=== PATIENT | male | born 1940 | race Caucasian/White ===

== ENCOUNTER 2016-11-04 04:05 | Inpatient (IN) | payer MEDICARE, BC ==
--- NOTE | 2016-11-04 04:49 | EDM.PDOC ---
ED HPI GENERAL MEDICAL PROBLEM - General Chief Complaint: Fever Stated Complaint: COPD/FEVER/COUGH Time Seen by Provider: 11/04/16 04:43 Source of Information: Reports: Patient, Family History Limitations: Reports: No Limitations - History of Present Illness INITIAL COMMENTS - FREE TEXT/NARRATIVE: pt arrived with increased sob nd h has been spiking temps as high as 104. He has had increased sob. He has not been raising sig sputum. He has not noted increased swelling in his ankles. He does use o2 at home at 2 liters. He is followed by a pulmomologist in [place]. Onset: Gradual Duration: Day(s):, Getting Worse Location: Reports: Chest Associated Symptoms: Reports: Cough, Fever/Chills, Malaise, Shortness of Breath , Weakness shoulders and legs Pain Score (Numeric/FACES): 7 - Related Data Allergies Allergy/AdvReac Type Severity Reaction Status Date / Time zolpidem tartrate Allergy Other Verified 11/04/16 04:20 [From Ambien] codeine phosphate AdvReac Nausea and Verified 11/04/16 04:20 [From Tylenol-Codeine] Vomiting Penicillins AdvReac Swelling Verified 11/04/16 04:20 Home Meds: Home Meds Albuterol Sulfate [Proair Hfa] 90 mcg IH Q6HR PRN 09/29/13 [History] Fish Oil/Borage/Flax/Om3,6,9#1 [[place] 3-6-9 Complex Softgel] 1 each PO DAILY [History] Ranitidine HCl [Zantac] 150 mg PO DAILY 09/29/13 [History] Aspirin 1 tab PO DAILY 09/19/15 [History] Cholecalciferol (Vitamin D3) [Vitamin D3] 1 tab PO DAILY 09/19/15 [History] Clopidogrel [Plavix] 1 tab PO DAILY 09/19/15 [History] Lisinopril [Zestril] 1 tab PO DAILY 09/19/15 [History] Tiotropium [Spiriva HandiHaler] 1 cap INH DAILY 09/19/15 [History] amLODIPine [Norvasc] 1 tab PO DAILY 09/19/15 [History] busPIRone [Buspar] 0.5 tab PO BID 09/19/15 [History] atorvaSTATin [Lipitor] 80 mg PO DAILY 01/09/16 [History] Albuterol Sulfate [Proair Respiclick] 90 mcg IH Q6HR PRN 11/04/16 [History] Azithromycin [Zithromax] 500 mg PO ASDIRECTED 11/04/16 [History] Cyanocobalamin (Vitamin B-12) [Vitamin B-12] 1,000 mcg SL DAILY 11/04/16 [ History] Fluticasone/Salmeterol [Advair Diskus 500-50] 1 puff INH BID 11/04/16 [History] Ranibizumab [Lucentis] 0.5 mg Q3M 11/04/16 [History] Past Medical History HEENT History: Reports: Cataract, Hard of Hearing, Impaired Vision, Macular Degeneration Cardiovascular History: Reports: CAD, High Cholesterol, Hypertension, SOB on Exertion, Stents Respiratory History: Reports: COPD, Pneumonia, Recurrent, SOB Other Respiratory History: Home oxygen Gastrointestinal History: Reports: Colon Polyp Genitourinary History: Reports: BPH Musculoskeletal History: Reports: Fracture Psychiatric History: Reports: Anxiety Oncologic (Cancer) History: Reports: Basal Cell Carcinoma Other Oncologic History: skin Dermatologic History: Reports: Psoriasis - Infectious Disease History Infectious Disease History: Reports: Mumps, Rheumatic Fever - Past Surgical History Cardiovascular Surgical History: Reports: Coronary Artery Stent Musculoskeletal Surgical History: Reports: Other (See Below) Other Musculoskeletal Surgeries/Procedures:: ankle surgery Social & Family History - Tobacco Use Smoking Status *Q: Former Smoker Years of Tobacco use: 35 Used Tobacco, but Quit: Yes Month Tobacco Last Used: 30 years ago Second Hand Smoke Exposure: No - Caffeine Use Caffeine Use: Reports: None - Alcohol Use Days Per Week of Alcohol Use: 0 - Recreational Drug Use Recreational Drug Use: No ED ROS GENERAL - Review of Systems Review Of Systems: See Below Constitutional: Reports: Fever, Chills, Malaise HEENT: Reports: No Symptoms Respiratory: Reports: Shortness of Breath, Cough, Other (pt has been very sob for the past 2 days. ) Cardiovascular: Reports: No Symptoms Endocrine: Reports: No Symptoms GI/Abdominal: Reports: No Symptoms : Reports: No Symptoms Musculoskeletal: Reports: No Symptoms Skin: Reports: No Symptoms ED EXAM, GENERAL - Physical Exam Exam: See Below Free Text/Narrative:: Pt arrived with increased sob. He spiked a temp up to 104. He has had increased coughing. Exam Limited By: No Limitations General Appearance: Alert, Anxious, Moderate Distress Ears: Normal TMs Nose: Normal Inspection Throat/Mouth: Normal Inspection Head: Atraumatic Neck: Normal Inspection Respiratory/Chest: Decreased Breath Sounds, Wheezing Cardiovascular: Regular Rate, Rhythm GI/Abdominal: Soft, Non-Tender (Male) Exam: Deferred Rectal (Males) Exam: Deferred Back Exam: Normal Inspection Extremities: Normal Inspection Neurological: Alert, Oriented, Normal Cognition Psychiatric: Normal Affect Course - Vital Signs Last Recorded V/S: Last Vital Signs Temp 37.5 C 11/04/16 04:10 Pulse 75 11/04/16 05:59 Resp 24 H 11/04/16 05:59 BP 137/76 11/04/16 05:59 Pulse Ox 93 L 11/04/16 05:59 - Orders/Labs/Meds Orders: Active Orders 24 hr Category Date Time Status EKG Documentation Completion [RC] ASDIRECTED Care 11/04/16 04:54 Active RT Aerosol Therapy [RC] ASDIRECTED Care 11/04/16 04:52 Active Chest 1V Frontal [CR] Stat Exams 11/04/16 04:08 Taken CULTURE BLOOD [BC] Urgent Lab 11/04/16 05:05 Received CULTURE BLOOD [BC] Urgent Lab 11/04/16 05:10 Received UA W/MICROSCOPIC [URIN] Urgent Lab 11/04/16 04:07 Uncollected Levofloxacin/Dextrose 5%-Water [Levaquin in D5W 500 MG/ Med 11/04/16 05:53 Active 100 ML] 500 mg Premix Bag 1 bag IV ONETIME Sodium Chloride 0.9% [Normal Saline] 1,000 ml Med 11/04/16 05:45 Active IV ASDIRECTED Blood Culture x2 Reflex Set [OM.PC] Urgent Oth 11/04/16 04:53 Ordered EKG 12 Lead [EK] Routine Ther 11/04/16 04:54 Ordered Medication Orders Sodium Chloride (Normal Saline) 1,000 mls @ 250 mls/hr IV ASDIRECTED ALON Last Admin: 11/04/16 05:50 Dose: 250 mls/hr Levofloxacin/Dextrose 500 mg/ (Premix) 100 mls @ 100 mls/hr IV ONETIME ONE Stop: 11/04/16 06:52 Labs: Laboratory Tests 11/04/16 11/04/16 11/04/16 Range/Units 04:07 04:08 04:15 WBC 16.8 H (4.5-11.0) K/uL RBC 5.39 (4.30-5.90) M/uL Hgb 15.2 H (12.0-15.0) g/dL Hct 45.6 (40.0-54.0) % MCV 85 (80-98) fL MCH 28 (27-31) pg MCHC 33 (32-36) % Plt Count 198 (150-400) K/uL Neut % (Auto) 87 H (36-66) % Lymph % (Auto) 4 L (24-44) % [place] % (Auto) 9 H (2-6) % Eos % (Auto) 0 L (2-4) % Baso % (Auto) 0 (0-1) % Puncture Site Lt radial ABG pH 7.439 (7.350-7.450) ABG pCO2 41.4 (35.0-42.0) mmHg ABG pO2 47.4 L (75.0-100.0) mmHg ABG HCO3 27.6 H (22.0-26.0) mmol/L ABG Total CO2 23.6 (23.0-27.0) mmol/L ABG O2 Saturation 85.9 L (95.0-98.0) % ABG O2 Content 18.3 (15.0-23.0) %vol ABG Base Excess 3.5 mm/L ABG Hemoglobin 15.6 (13.5-18.0) g/dL ABG Oxyhemoglobin 83.9 % ABG Carboxyhemoglobin 1.8 H (0.0-1.6) % ABG Methemoglobin 0.5 % Chad Test Passed O2 Delivery Device Nasal cannula Oxygen Flow Rate 3 L Sodium 138 L (140-148) mmol/L Potassium 4.6 (3.6-5.2) mmol/L Chloride 102 (100-108) mmol/L Carbon Dioxide 29 (21-32) mmol/L Anion Gap 11.6 (5.0-14.0) mmol/L BUN 11 (7-18) mg/dL Creatinine 0.9 (0.8-1.3) mg/dL Est Cr Clr Drug Dosing 64.98 mL/min Estimated GFR (MDRD) > 60 (>60) Glucose 131 H (74-106) mg/dL Lactic Acid (0.4-2.0) mmol/L Calcium 8.6 (8.5-10.1) mg/dL Total Bilirubin 1.7 H D (0.2-1.0) mg/dL AST 20 (15-37) U/L ALT 27 (12-78) U/L Alkaline Phosphatase 101 (46-116) U/L Lvr-K-Qvpiisciuiw Pept (5-125) pg/mL Total Protein 7.8 (6.4-8.2) g/dL Albumin 3.8 (3.4-5.0) g/dL Globulin 4.0 H (2.3-3.5) g/dL Albumin/Globulin Ratio 1.0 L (1.2-2.2) 11/04/16 11/04/16 Range/Units 04:54 05:53 WBC (4.5-11.0) K/uL RBC (4.30-5.90) M/uL Hgb (12.0-15.0) g/dL Hct (40.0-54.0) % MCV (80-98) fL MCH (27-31) pg MCHC (32-36) % Plt Count (150-400) K/uL Neut % (Auto) (36-66) % Lymph % (Auto) (24-44) % [place] % (Auto) (2-6) % Eos % (Auto) (2-4) % Baso % (Auto) (0-1) % Puncture Site ABG pH (7.350-7.450) ABG pCO2 (35.0-42.0) mmHg ABG pO2 (75.0-100.0) mmHg ABG HCO3 (22.0-26.0) mmol/L ABG Total CO2 (23.0-27.0) mmol/L ABG O2 Saturation (95.0-98.0) % ABG O2 Content (15.0-23.0) %vol ABG Base Excess mm/L ABG Hemoglobin (13.5-18.0) g/dL ABG Oxyhemoglobin % ABG Carboxyhemoglobin (0.0-1.6) % ABG Methemoglobin % Chad Test O2 Delivery Device Oxygen Flow Rate L Sodium (140-148) mmol/L Potassium (3.6-5.2) mmol/L Chloride (100-108) mmol/L Carbon Dioxide (21-32) mmol/L Anion Gap (5.0-14.0) mmol/L BUN (7-18) mg/dL Creatinine (0.8-1.3) mg/dL Est Cr Clr Drug Dosing mL/min Estimated GFR (MDRD) (>60) Glucose (74-106) mg/dL Lactic Acid 1.2 (0.4-2.0) mmol/L Calcium (8.5-10.1) mg/dL Total Bilirubin (0.2-1.0) mg/dL AST (15-37) U/L ALT (12-78) U/L Alkaline Phosphatase (46-116) U/L Sib-G-Dareruxjfjh Pept 194 H (5-125) pg/mL Total Protein (6.4-8.2) g/dL Albumin (3.4-5.0) g/dL Globulin (2.3-3.5) g/dL Albumin/Globulin Ratio (1.2-2.2) Meds: Medications Generic Name Dose Route Start Last Admin Trade Name Freq PRN Reason Stop Dose Admin Sodium Chloride 1,000 mls @ 250 mls/hr 11/04/16 05:45 11/04/16 05:50 Normal Saline IV 250 mls/hr ASDIRECTED ALON Administration Levofloxacin/Dextrose 500 mg/ 100 mls @ 100 mls/hr 11/04/16 05:53 Premix IV 11/04/16 06:52 ONETIME ONE Discontinued Medications Generic Name Dose Route Start Last Admin Trade Name Freq PRN Reason Stop Dose Admin Albuterol 2.5 mg 11/04/16 04:52 11/04/16 04:59 Proventil Neb Soln NEB 11/04/16 04:53 2.5 mg ONETIME ONE Administration Methylprednisolone Sodium Succinate 125 mg 11/04/16 05:32 11/04/16 05:53 Solu-Medrol IVPUSH 11/04/16 05:33 125 mg ONETIME ONE Administration - Re-Assessments/Exams Free Text/Narrative Re-Assessment/Exam: 11/04/16 06:07 chest xray reveals a infiltrate at the rt lung base, wbc is 16,800. He was given a neb and solumedrol 125 and he is breathing better. His ekg looks good. Departure - Departure Time of Disposition: 06:08 Disposition: Admitted As Inpatient 68 Condition: Fair Clinical Impression: COPD exacerbation, Right lower lobe pneumonia - Discharge Information Forms: ED Department Discharge Care Plan Goals: admit to Dr de la paz. - My Orders Last 24 Hours: My Active Orders 11/04/16 04:07 UA W/MICROSCOPIC [URIN] Urgent 11/04/16 04:08 Chest 1V Frontal [CR] Stat 11/04/16 04:52 RT Aerosol Therapy [RC] ASDIRECTED 11/04/16 04:53 Blood Culture x2 Reflex Set [OM.PC] Urgent 11/04/16 04:54 EKG Documentation Completion [RC] ASDIRECTED EKG 12 Lead [EK] Routine 11/04/16 05:05 CULTURE BLOOD [BC] Urgent 11/04/16 05:10 CULTURE BLOOD [BC] Urgent 11/04/16 05:45 Sodium Chloride 0.9% [Normal Saline] 1,000 ml IV ASDIRECTED 11/04/16 05:53 Levofloxacin/Dextrose 5%-Water [Levaquin in D5W 500 MG/100 ML] 500 mg Premix Bag 1 bag IV ONETIME - Assessment/Plan Last 24 Hours: My Active Orders 11/04/16 04:07 UA W/MICROSCOPIC [URIN] Urgent 11/04/16 04:08 Chest 1V Frontal [CR] Stat 11/04/16 04:52 RT Aerosol Therapy [RC] ASDIRECTED 11/04/16 04:53 Blood Culture x2 Reflex Set [OM.PC] Urgent 11/04/16 04:54 EKG Documentation Completion [RC] ASDIRECTED EKG 12 Lead [EK] Routine 11/04/16 05:05 CULTURE BLOOD [BC] Urgent 11/04/16 05:10 CULTURE BLOOD [BC] Urgent 11/04/16 05:45 Sodium Chloride 0.9% [Normal Saline] 1,000 ml IV ASDIRECTED 11/04/16 05:53 Levofloxacin/Dextrose 5%-Water [Levaquin in D5W 500 MG/100 ML] 500 mg Premix Bag 1 bag IV ONETIME
[2016-11-04] MEDS ORDERED: Albuterol 0.083% 2.5 MG/3 ML Neb Soln NEB ONE (04:52)
[2016-11-04] MEDS ORDERED: methylPREDNISolone Sodium Succinate 125 MG/2 ML SDV IVPUSH ONE (05:32)
[2016-11-04] MEDS ORDERED: Sodium Chloride 0.9% 1,000 ML IV SCH (05:45)
[2016-11-04] MEDS ORDERED: Levofloxacin/Dextrose 5%-Water 500 MG in Premix Bag 1 BAG IV ONE (05:53)
--- NOTE | 2016-11-04 08:11 | PCM.HP ---
H&P History of Present Illness - General Date of Service: 11/04/16 Admit Problem/Dx: Admission Diagnosis/Problem Admission Diagnosis/Problem Pneumonia Source of Information: Patient, Family, Provider History Limitations: Reports: No Limitations - History of Present Illness Initial Comments - Free Text/Narative: Christiano presents to the emergency room with 2 days of progressive shortness of breath and fever. He reports initially mild shortness of breath with progression. He is very short of breath with any activity. He has had a dry cough for the past 2 days as well. Yesterday afternoon he developed subjective fevers and then had worsening of symptoms throughout the evening. His measured temperatures greater than 104 last night. The fever did improve with a dose of acetaminophen. He reports some very mild discomfort with deep breathing. This is located in the anterior chest. No exertional symptoms. He has had some mild nausea off and on but this is a chronic issue. He reports chronic constipation that has been relatively stable. No recent diarrhea. No lower extremity edema or orthopnea. 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 his oxygen numbers have been running lower than normal at home despite supplemental oxygen. Workup in the emergency room revealed significant leukocytosis, hypoxia and probable right lower lung pneumonia. He will be admitted for management. shoulders and legs Pain Score (Numeric/FACES): 7 - Related Data Allergies/Adverse Reactions: Allergies Allergy/AdvReac Type Severity Reaction Status Date / Time zolpidem tartrate Allergy Other Verified 11/04/16 04:20 [From Ambien] codeine phosphate AdvReac Nausea and Verified 11/04/16 04:20 [From Tylenol-Codeine] Vomiting Penicillins AdvReac Swelling Verified 11/04/16 04:20 Home Medications: Home Meds Albuterol Sulfate [Proair Hfa] 90 mcg IH Q6HR PRN 09/29/13 [History] Fish Oil/Borage/Flax/Om3,6,9#1 [[place] 3-6-9 Complex Softgel] 1 each PO DAILY [History] Aspirin 81 mg PO DAILY 09/19/15 [History] Cholecalciferol (Vitamin D3) [Vitamin D3] 2,000 unit PO DAILY 09/19/15 [History] Clopidogrel [Plavix] 75 mg PO DAILY 09/19/15 [History] Lisinopril [Zestril] 20 mg PO DAILY 09/19/15 [History] Tiotropium [Spiriva HandiHaler] 1 cap INH DAILY 09/19/15 [History] amLODIPine [Norvasc] 5 mg PO DAILY 09/19/15 [History] busPIRone [Buspar] 5 mg PO BID 09/19/15 [History] atorvaSTATin [Lipitor] 80 mg PO DAILY 01/09/16 [History] Albuterol Sulfate [Proair Respiclick] 90 mcg IH Q6HR PRN 11/04/16 [History] Azithromycin [Zithromax] 500 mg PO ASDIRECTED 11/04/16 [History] Cyanocobalamin (Vitamin B-12) [Vitamin B-12] 1,000 mcg SL DAILY 11/04/16 [ History] Fluticasone/Salmeterol [Advair Diskus 500-50] 1 puff INH BID 11/04/16 [History] Ranibizumab [Lucentis] 0.5 mg Q3M 11/04/16 [History] Ranitidine [Zantac] 150 mg PO DAILY 11/04/16 [History] Past Medical History HEENT History: Reports: Cataract, Hard of Hearing, Impaired Vision, Macular Degeneration Cardiovascular History: Reports: CAD, High Cholesterol, Hypertension, SOB on Exertion, Stents Respiratory History: Reports: COPD, Pneumonia, Recurrent, SOB Other Respiratory History: Home oxygen Gastrointestinal History: Reports: Colon Polyp Genitourinary History: Reports: BPH Musculoskeletal History: Reports: Fracture Psychiatric History: Reports: Anxiety Oncologic (Cancer) History: Reports: Basal Cell Carcinoma Other Oncologic History: skin Dermatologic History: Reports: Psoriasis - Infectious Disease History Infectious Disease History: Reports: Mumps, Rheumatic Fever - Past Surgical History Cardiovascular Surgical History: Reports: Coronary Artery Stent Musculoskeletal Surgical History: Reports: Other (See Below) Other Musculoskeletal Surgeries/Procedures:: ankle surgery Social & Family History - Family History Respiratory: Reports: COPD - Tobacco Use Smoking Status *Q: Former Smoker Years of Tobacco use: 35 Used Tobacco, but Quit: Yes Month Tobacco Last Used: 30 years ago Second Hand Smoke Exposure: No - Caffeine Use Caffeine Use: Reports: None - Alcohol Use Days Per Week of Alcohol Use: 0 - Recreational Drug Use Recreational Drug Use: No H&P Review of Systems - Review of Systems: Review Of Systems: See Below Free Text/Narrative: A complete 12 point review of systems was obtained. Pertinent positives and negatives are noted in the history of present illness. All other systems were reviewed and were negative except as noted. Exam - Exam Exam: See Below - Vital Signs Vital Signs: Last Vital Signs Temp 37.5 C 11/04/16 04:10 Pulse 75 11/04/16 05:59 Resp 24 H 11/04/16 05:59 BP 137/76 11/04/16 05:59 Pulse Ox 93 L 11/04/16 05:59 Weight: 77.111 kg - Exam Quality Assessment: Supplemental Oxygen. No: Urinary Catheter General: Alert, Oriented, Cooperative. No: Mild Distress HEENT: Conjunctiva Clear, Mucosa Moist & [place]. No: Scleral Icterus Neck: Supple, Trachea Midline. No: Lymphadenopathy, JVD Lungs: Normal Respiratory Effort (mild increase in work of breathing), Decreased Breath Sounds (right lung base), Other (prolonged expiratory phase). No: Wheezing Cardiovascular: Regular Rate, Regular Rhythm. No: Systolic Murmur GI/Abdominal Exam: Normal Bowel Sounds, Soft, Non-Tender, No Distention, Tender (very mild tenderness left lateral abdomen and right lateral abdomen) Back Exam: Normal Inspection, Full Range of Motion Extremities: Normal Inspection, Normal Range of Motion, No Pedal Edema Peripheral Pulses: 2+: Dorsalis Pedis (L), Dorsalis Pedis (R) Skin: Warm, Dry, Intact Neuro Extensive - Mental Status: Alert, Oriented x3, Nl Response to Commands Neuro Extensive - Motor, Sensory, Reflexes: CN II-XII Intact. No: Dysarthria, Abnormal Motor, Tremor Psychiatric: Alert, Normal Affect - Patient Data Lab Results Last 24 hrs: Laboratory Results - last 24 hr 11/04/16 11/04/16 11/04/16 Range/Units 04:07 04:08 04:15 WBC 16.8 H (4.5-11.0) K/uL RBC 5.39 (4.30-5.90) M/uL Hgb 15.2 H (12.0-15.0) g/dL Hct 45.6 (40.0-54.0) % MCV 85 (80-98) fL MCH 28 (27-31) pg MCHC 33 (32-36) % Plt Count 198 (150-400) K/uL Neut % (Auto) 87 H (36-66) % Lymph % (Auto) 4 L (24-44) % [place] % (Auto) 9 H (2-6) % Eos % (Auto) 0 L (2-4) % Baso % (Auto) 0 (0-1) % Puncture Site Lt radial ABG pH 7.439 (7.350-7.450) ABG pCO2 41.4 (35.0-42.0) mmHg ABG pO2 47.4 L (75.0-100.0) mmHg ABG HCO3 27.6 H (22.0-26.0) mmol/L ABG Total CO2 23.6 (23.0-27.0) mmol/L ABG O2 Saturation 85.9 L (95.0-98.0) % ABG O2 Content 18.3 (15.0-23.0) %vol ABG Base Excess 3.5 mm/L ABG Hemoglobin 15.6 (13.5-18.0) g/dL ABG Oxyhemoglobin 83.9 % ABG Carboxyhemoglobin 1.8 H (0.0-1.6) % ABG Methemoglobin 0.5 % Chad Test Passed O2 Delivery Device Nasal cannula Oxygen Flow Rate 3 L Sodium 138 L (140-148) mmol/L Potassium 4.6 (3.6-5.2) mmol/L Chloride 102 (100-108) mmol/L Carbon Dioxide 29 (21-32) mmol/L Anion Gap 11.6 (5.0-14.0) mmol/L BUN 11 (7-18) mg/dL Creatinine 0.9 (0.8-1.3) mg/dL Est Cr Clr Drug Dosing 64.98 mL/min Estimated GFR (MDRD) > 60 (>60) Glucose 131 H (74-106) mg/dL Lactic Acid (0.4-2.0) mmol/L Calcium 8.6 (8.5-10.1) mg/dL Total Bilirubin 1.7 H D (0.2-1.0) mg/dL AST 20 (15-37) U/L ALT 27 (12-78) U/L Alkaline Phosphatase 101 (46-116) U/L Jyd-T-Ubjjzgjdttw Pept (5-125) pg/mL Total Protein 7.8 (6.4-8.2) g/dL Albumin 3.8 (3.4-5.0) g/dL Globulin 4.0 H (2.3-3.5) g/dL Albumin/Globulin Ratio 1.0 L (1.2-2.2) 11/04/16 11/04/16 Range/Units 04:54 05:53 WBC (4.5-11.0) K/uL RBC (4.30-5.90) M/uL Hgb (12.0-15.0) g/dL Hct (40.0-54.0) % MCV (80-98) fL MCH (27-31) pg MCHC (32-36) % Plt Count (150-400) K/uL Neut % (Auto) (36-66) % Lymph % (Auto) (24-44) % [place] % (Auto) (2-6) % Eos % (Auto) (2-4) % Baso % (Auto) (0-1) % Puncture Site ABG pH (7.350-7.450) ABG pCO2 (35.0-42.0) mmHg ABG pO2 (75.0-100.0) mmHg ABG HCO3 (22.0-26.0) mmol/L ABG Total CO2 (23.0-27.0) mmol/L ABG O2 Saturation (95.0-98.0) % ABG O2 Content (15.0-23.0) %vol ABG Base Excess mm/L ABG Hemoglobin (13.5-18.0) g/dL ABG Oxyhemoglobin % ABG Carboxyhemoglobin (0.0-1.6) % ABG Methemoglobin % Chad Test O2 Delivery Device Oxygen Flow Rate L Sodium (140-148) mmol/L Potassium (3.6-5.2) mmol/L Chloride (100-108) mmol/L Carbon Dioxide (21-32) mmol/L Anion Gap (5.0-14.0) mmol/L BUN (7-18) mg/dL Creatinine (0.8-1.3) mg/dL Est Cr Clr Drug Dosing mL/min Estimated GFR (MDRD) (>60) Glucose (74-106) mg/dL Lactic Acid 1.2 (0.4-2.0) mmol/L Calcium (8.5-10.1) mg/dL Total Bilirubin (0.2-1.0) mg/dL AST (15-37) U/L ALT (12-78) U/L Alkaline Phosphatase (46-116) U/L Wsm-N-Tawjozuovew Pept 194 H (5-125) pg/mL Total Protein (6.4-8.2) g/dL Albumin (3.4-5.0) g/dL Globulin (2.3-3.5) g/dL Albumin/Globulin Ratio (1.2-2.2) Result Diagrams: 11/04/16 04:07 11/04/16 04:15 Imaging Impressions Last 24 hrs: chest x-ray - images personally reviewed - there is hyperinflation. Heart size is normal. No effusions. There is a probable small right lower lobe infiltrate. *Q Meaningful Use (ADM) - VTE *Q VTE Criteria *Q: - VTE Risk Assess *Q Each Risk Factor Represents 1 Point: Abnormal Pulmonary Function (COPD) Total Score 1 Point Risk Factors: 1 Each Risk Factor Represents 2 Points: Age 60 - 74 Years Total Score 2 Point Risk Factors: 2 Each Risk Factor Represents 3 Points: None Total Score 3 Point Risk Factors: 0 Each Risk Factor Represents 5 Points: None Total Score 5 Point Risk Factors: 0 Venous Thromboembolism Risk Factor Score *Q: 3 - Stroke *Q Stroke Criteria *Q: - AMI *Q AMI Criteria *Q: - Problem List (1) Right lower lobe pneumonia SNOMED Code(s): 823530992 ICD Code: J18.1 - LOBAR PNEUMONIA, UNSPECIFIED ORGANISM Status: Acute Current Visit: Yes Qualifiers: Pneumonia type: due to unspecified organism Qualified Code(s): J18.1 - Lobar pneumonia, unspecified organism (2) Acute exacerbation of chronic obstructive pulmonary disease (COPD) SNOMED Code(s): 544162971 ICD Code: J44.1 - CHRONIC OBSTRUCTIVE PULMONARY DISEASE W (ACUTE) EXACERBATION Status: Acute Priority: Medium Current Visit: No Problem List Initiated/Reviewed/Updated: Yes Orders Last 24hrs: Active Orders 24 hr Category Date Time Status Patient Status Manage Transfer [TRANSFER] Routine ADT 11/04/16 07:54 Ordered EKG Documentation Completion [RC] ASDIRECTED Care 11/04/16 04:54 Active RT Aerosol Therapy [RC] ASDIRECTED Care 11/04/16 04:52 Active Chest 1V Frontal [CR] Stat Exams 11/04/16 04:08 Taken CULTURE BLOOD [BC] Urgent Lab 11/04/16 05:05 Received CULTURE BLOOD [BC] Urgent Lab 11/04/16 05:10 Received UA W/MICROSCOPIC [URIN] Urgent Lab 11/04/16 04:07 Uncollected Sodium Chloride 0.9% [Normal Saline] 1,000 ml Med 11/04/16 05:45 Active IV ASDIRECTED Blood Culture x2 Reflex Set [OM.PC] Urgent Oth 11/04/16 04:53 Ordered Resuscitation Status Routine Resus Stat 11/04/16 07:55 Ordered EKG 12 Lead [EK] Routine Ther 11/04/16 04:54 Ordered Medication Orders Sodium Chloride (Normal Saline) 1,000 mls @ 250 mls/hr IV ASDIRECTED ALON Last Admin: 11/04/16 05:50 Dose: 250 mls/hr Assessment/Plan Comment:: Assessment and plan - Right lower lobe pneumonia - probable infiltrate right lower lung. History and examination consistent with pneumonia in this location as well. He is at a higher risk given his severe oxygen dependent COPD. He has leukocytosis but no evidence for sepsis at this time. He has hypoxia beyond his baseline. He has been on antibiotics as an outpatient to suppress the chance of infection. -Extended spectrum antibiotics with levofloxacin and ceftriaxone -Follow-up cultures -Sputum culture if able -Supplement oxygen -Tessalon Perles as needed for cough COPD with acute exacerbation - no significant wheezing at the time of my examination but wheezing was reported on arrival. He has received steroids. I think he would benefit from a short burst of steroids given his severe COPD. -Scheduled and as needed nebulizers -Solu-Medrol today and transition to prednisone tomorrow -Continue Advair and Spiriva Maintenance issues - - DVT prophylaxis - mechanical - GI prophylaxis - H2 joe - Nutrition - regular diet - Carias catheter - not indicated CODE STATUS - patient is interested in having CPR should he have a cardiac arrest but is not interested in intubation. Admission justification - This patient will be admitted for inpatient services and is medically appropriate meeting medical necessity for inpatient admission as outlined in my documentation. I reasonably expect the patient will require inpatient services that span a period time over 2 midnights. I reasonably expect this patient to be discharged or transferred within 96 hours [facility] Disposition - anticipate discharge home after the hospital stay Primary care physician - Dr. Ciarra Mcleod M.D.
[2016-11-04] MEDS ORDERED: Ondansetron 4 MG/2 ML SDV IV PRN (08:14)
[2016-11-04] MEDS ORDERED: Benzonatate 100 MG Cap PO PRN (08:14)
[2016-11-04] MEDS ORDERED: Ondansetron 4 MG Tab.DIS PO PRN (08:14)
[2016-11-04] MEDS ORDERED: Magnesium Hydroxide 400 MG/5 ML Susp 30 ML Cup PO PRN (08:14)
[2016-11-04] MEDS ORDERED: Albuterol 0.083% 2.5 MG/3 ML Neb Soln NEB PRN (08:14)
[2016-11-04] MEDS ORDERED: Polyethylene Glycol 3350 Powder 17 GM Packet PO PRN (08:14)
[2016-11-04] MEDS ORDERED: Ibuprofen 600 MG Tab PO PRN (08:14)
[2016-11-04] MEDS ORDERED: Acetaminophen 325 MG Tab PO PRN (08:14)
[2016-11-04] MEDS: Formoterol/Mometasone 200-5 MCG 8.8 GM Inhaler IH SCH ×2 (09:34→21:52)
[2016-11-04] MEDS: Tiotropium Inhaler 18 MCG Inhalation Powder Cap Kit of 5 INH SCH (09:34)
[2016-11-04] MEDS: Albuterol/Ipratropium 3.0-0.5 MG/3 ML Neb Soln NEB SCH ×4 (09:43→21:54)
[2016-11-04] MEDS: Clopidogrel 75 MG Tab PO SCH (09:58)
[2016-11-04] MEDS: Polyethylene Glycol 3350 Powder 17 GM Packet PO SCH (09:58)
[2016-11-04] MEDS: busPIRone 5 MG Tab PO SCH ×2 (09:58→21:52)
[2016-11-04] MEDS: amLODIPine 5 MG Tab PO SCH (09:59)
[2016-11-04] MEDS: Aspirin 81 MG Tab.Chew PO SCH (09:59)
[2016-11-04] MEDS: Cyanocobalamin (Vitamin B12) 1,000 MCG Tab SL SCH (09:59)
[2016-11-04] MEDS: Lisinopril 20 MG Tab PO SCH (09:59)
[2016-11-04] MEDS: cefTRIAXone 2 GM in Sodium Chloride 0.9% 50 ML IV SCH (10:00)
[2016-11-04] MEDS: atorvaSTATin 20 MG Tab PO SCH (10:00)
[2016-11-04] MEDS: methylPREDNISolone Sodium Succinate 125 MG/2 ML SDV IVPUSH SCH (17:09)
[2016-11-04] MEDS: Sodium Chloride 0.9% 1,000 ML IV SCH (20:04)
[2016-11-05] MEDS: methylPREDNISolone Sodium Succinate 125 MG/2 ML SDV IVPUSH SCH (00:12)
[2016-11-05] MEDS: Sodium Chloride 0.9% 1,000 ML IV SCH ×2 (03:57→12:25)
[2016-11-05] MEDS: Albuterol/Ipratropium 3.0-0.5 MG/3 ML Neb Soln NEB SCH ×4 (07:22→20:11)
[2016-11-05] MEDS: Formoterol/Mometasone 200-5 MCG 8.8 GM Inhaler IH SCH ×2 (07:23→20:11)
[2016-11-05] MEDS: Tiotropium Inhaler 18 MCG Inhalation Powder Cap Kit of 5 INH SCH (07:23)
[2016-11-05] MEDS: predniSONE 20 MG Tab PO SCH ×2 (07:56→16:00)
[2016-11-05] MEDS: Levofloxacin 250 MG Tab PO SCH (07:57)
[2016-11-05] MEDS: Levofloxacin 500 MG Tab PO SCH (07:58)
[2016-11-05] MEDS: Polyethylene Glycol 3350 Powder 17 GM Packet PO SCH (08:02)
[2016-11-05] MEDS: atorvaSTATin 20 MG Tab PO SCH (08:03)
[2016-11-05] MEDS: Aspirin 81 MG Tab.Chew PO SCH (08:03)
[2016-11-05] MEDS: busPIRone 5 MG Tab PO SCH ×2 (08:03→20:11)
[2016-11-05] MEDS: amLODIPine 5 MG Tab PO SCH (08:04)
[2016-11-05] MEDS: Lisinopril 20 MG Tab PO SCH (08:04)
[2016-11-05] MEDS: Clopidogrel 75 MG Tab PO SCH (08:04)
[2016-11-05] MEDS: Cyanocobalamin (Vitamin B12) 1,000 MCG Tab SL SCH (08:05)
[2016-11-05] MEDS: cefTRIAXone 2 GM in Sodium Chloride 0.9% 50 ML IV SCH (08:05)
--- NOTE | 2016-11-05 08:38 | CR ---
Chest 1V Frontal INDICATION: sob FINDINGS: Comparison 01/09/2016. Hyperinflation. New mild interstitial and airspace opacity in the r ight lung base. Early pneumonia is not excluded. Stable interstitial densities left lung base. Sligh t blunting of the costophrenic angles. Aortic calcification. Chest otherwise negative.
[2016-11-05] MEDS ORDERED: Polyethylene Glycol 3350 Powder 17 GM Packet PO ONE (16:19)
--- NOTE | 2016-11-05 16:24 | PCM.PN ---
- General Info Date of Service: 11/05/16 Functional Status: Reports: Tolerating Diet, Urinating - Review of Systems General: Reports: Weakness. Denies: Fever, Chills Pulmonary: Reports: Shortness of Breath, Cough, Wheezing. Denies: Sputum, Hemoptysis Cardiovascular: Reports: Dyspnea on Exertion. Denies: Chest Pain, Palpitations , Orthopnea, PND, Edema, Lightheadedness Gastrointestinal: Reports: No Symptoms Systems Review Comment:: Mr. Azul is a 76-year-old gentleman with oxygen-dependent COPD who was admitted through the emergency department yesterday with hypoxic respiratory failure secondary to pneumonia. He is improved modestly with current management and has been hemodynamically stable as well as afebrile. - Patient Data Vitals - Most Recent: Last Vital Signs Temp 98.4 F 11/05/16 14:35 Pulse 90 11/05/16 14:35 Resp 18 11/05/16 14:35 BP 118/62 11/05/16 14:35 Pulse Ox 98 11/05/16 14:35 Weight - Most Recent: 170 lb I&O - Last 24 Hours: Intake & Output 11/05/16 11/05/16 11/05/16 06:59 14:59 22:59 Intake Total 1505 190 Balance 1505 190 Lab Results Last 24 Hours: Laboratory Results - last 24 hr 11/05/16 11/05/16 Range/Units 05:11 05:11 WBC 13.1 H (4.5-11.0) K/uL RBC 4.60 (4.30-5.90) M/uL Hgb 13.1 D (12.0-15.0) g/dL Hct 39.3 L (40.0-54.0) % MCV 85 (80-98) fL MCH 29 (27-31) pg MCHC 33 (32-36) % Plt Count 156 (150-400) K/uL Sodium 141 (140-148) mmol/L Potassium 4.5 (3.6-5.2) mmol/L Chloride 108 (100-108) mmol/L Carbon Dioxide 27 (21-32) mmol/L Anion Gap 6.3 (5.0-14.0) mmol/L BUN 16 (7-18) mg/dL Creatinine 0.8 (0.8-1.3) mg/dL Est Cr Clr Drug Dosing 73.10 mL/min Estimated GFR (MDRD) > 60 (>60) Glucose 164 H (74-106) mg/dL Calcium 8.1 L (8.5-10.1) mg/dL Nico Results Last 24 Hours: Microbiology 11/05/16 07:22 Gram Stain - Final Sputum - Expectorated Med Orders - Current: Current Medications Acetaminophen (Tylenol) 650 mg PO Q4H PRN PRN Reason: Pain (Mild 1-3)/fever Albuterol (Proventil Neb Soln) 2.5 mg NEB Q4H PRN PRN Reason: Shortness Of Breath/wheezing Albuterol/Ipratropium (Duoneb 3.0-0.5 Mg/3 Ml) 3 ml NEB QIDRT [facility] Last Admin: 11/05/16 14:34 Dose: 3 ml Amlodipine Besylate (Norvasc) 5 mg PO DAILY [facility] Last Admin: 11/05/16 08:04 Dose: 5 mg Aspirin (Aspirin) 81 mg PO DAILY [facility] Last Admin: 11/05/16 08:03 Dose: 81 mg Atorvastatin Calcium (Lipitor) 80 mg PO DAILY [facility] Last Admin: 11/05/16 08:03 Dose: 80 mg Benzonatate (Tessalon Perles) 100 mg PO TID PRN PRN Reason: Cough Buspirone HCl (Buspar) 5 mg PO BID [facility] Last Admin: 11/05/16 08:03 Dose: 5 mg Clopidogrel Bisulfate (Plavix) 75 mg PO DAILY [facility] Last Admin: 11/05/16 08:04 Dose: 75 mg Cyanocobalamin (Vitamin B12) 1,000 mcg SL DAILY [facility] Last Admin: 11/05/16 08:05 Dose: 1,000 mcg Ceftriaxone Sodium 2 gm/ (Sodium Chloride) 50 mls @ 100 mls/hr IV Q24H [facility] Last Admin: 11/05/16 08:05 Dose: 100 mls/hr Ibuprofen (Motrin) 600 mg PO Q6H PRN PRN Reason: Pain/Fever Levofloxacin (Levaquin) 500 mg PO Q24H [facility] Last Admin: 11/05/16 07:58 Dose: 500 mg Levofloxacin (Levaquin) 250 mg PO Q24H [facility] Last Admin: 11/05/16 07:57 Dose: 250 mg Lisinopril (Prinivil) 20 mg PO DAILY [facility] Last Admin: 11/05/16 08:04 Dose: 20 mg Magnesium Hydroxide (Milk Of Magnesia) 30 ml PO BID PRN PRN Reason: Constipation Mometasone Furoate/Formoterol Fumar (Dulera 200-5 Mcg) 0 puff IH BIDRT [facility] Last Admin: 11/05/16 07:23 Dose: 2 puff Ondansetron HCl (Zofran Odt) 4 mg PO Q6H PRN PRN Reason: Nausea able to take PO Ondansetron HCl (Zofran) 4 mg IV Q6H PRN PRN Reason: Nausea/Vomiting Polyethylene Glycol (Miralax) 17 gm PO BEDTIME PRN PRN Reason: Constipation Last Admin: 11/05/16 14:07 Dose: 17 gm Polyethylene Glycol (Miralax) 17 gm PO DAILY [facility] Last Admin: 11/05/16 08:02 Dose: 17 gm Prednisone (Prednisone) 20 mg PO BIDAC [facility] Last Admin: 11/05/16 16:00 Dose: 20 mg Ranitidine HCl (Zantac) 150 mg PO DAILY [facility] Last Admin: 11/05/16 08:05 Dose: 150 mg Senna/Docusate Sodium (Senna Plus) 1 tab PO BID PRN PRN Reason: Constipation Tiotropium [place] (Spiriva Handihaler) 18 mcg INH DAILYRT [facility] Last Admin: 11/05/16 07:23 Dose: 1 cap Discontinued Medications Albuterol (Proventil Neb Soln) 2.5 mg NEB ONETIME ONE Stop: 11/04/16 04:53 Last Admin: 11/04/16 04:59 Dose: 2.5 mg Sodium Chloride (Normal Saline) 1,000 mls @ 250 [facility]ls[facility] Last Admin: 11/04/16 05:50 Dose: 250 mls/hr Levofloxacin/Dextrose 500 mg/ (Premix) 100 mls @ 100 mls/hr IV ONETIME ONE Stop: 11/04/16 06:52 Last Admin: 11/04/16 06:19 Dose: 100 mls/hr Sodium Chloride (Normal Saline) 1,000 mls @ 125 [facility] Last Admin: 11/05/16 12:25 Dose: 125 mls/hr Methylprednisolone Sodium Succinate (Solu-Medrol) 125 mg IVPUSH ONETIME ONE Stop: 11/04/16 05:33 Last Admin: 11/04/16 05:53 Dose: 125 mg Methylprednisolone Sodium Succinate (Solu-Medrol) 62.5 mg IVPUSH Q8H [facility] Stop: 11/05/16 00:01 Last Admin: 11/05/16 00:12 Dose: 62.5 mg Polyethylene Glycol (Miralax) 17 gm PO ONETIME ONE Stop: 11/05/16 16:20 - Exam General: Alert, Oriented, Cooperative, Mild Distress Lungs: Decreased Breath Sounds. No: Crackles, Rales, Rhonchi, Rub, Wheezing Cardiovascular: Regular Rate, Regular Rhythm, No Murmurs GI/Abdominal Exam: Normal Bowel Sounds, Soft, Non-Tender, No Distention Extremities: Normal Inspection, No Pedal Edema Skin: Warm, Dry, Intact - Problem List Review Problem List Initiated/Reviewed/Updated: Yes - My Orders Last 24 Hours: My Active Orders 11/05/16 16:17 Convert IV to Saline Lock [OM.PC] Routine 11/06/16 05:00 BASIC METABOLIC PANEL,BMP [CHEM] Timed CBC WITH AUTO DIFF [HEME] Timed - Plan Plan:: Assessment and plan - Right lower lobe pneumonia - infiltrate right lower lung. History and examination consistent with pneumonia in this location as well. He is at a higher risk given his severe oxygen dependent COPD. He has leukocytosis but no evidence for sepsis at this time. He has hypoxia beyond his baseline. He has been on antibiotics as an outpatient to suppress the chance of infection. Mild improvement in symptoms specifically shortness of breath since admission. -Extended spectrum antibiotics with levofloxacin and ceftriaxone -Follow-up cultures -Sputum culture if able -Supplement oxygen -Tessalon Perles as needed for cough COPD with acute exacerbation - no significant wheezing at the time of my examination but wheezing was reported on arrival. He has received steroids. I think he would benefit from a short burst of steroids given his severe COPD. -Scheduled and as needed nebulizers -Solu-Medrol today and transition to prednisone tomorrow -Continue Advair and Spiriva Maintenance issues - - DVT prophylaxis - mechanical - GI prophylaxis - H2 joe - Nutrition - regular diet - Carias catheter - not indicated CODE STATUS - patient is interested in having CPR should he have a cardiac arrest but is not interested in intubation. Admission justification - This patient will be admitted for inpatient services and is medically appropriate meeting medical necessity for inpatient admission as outlined in my documentation. I reasonably expect the patient will require inpatient services that span a period time over 2 midnights. I reasonably expect this patient to be discharged or transferred within 96 hours after admission to the [facility]. Disposition - anticipate discharge home after the hospital stay Primary care physician - Dr. Lafleur
[2016-11-06] MEDS: Albuterol/Ipratropium 3.0-0.5 MG/3 ML Neb Soln NEB SCH ×4 (07:35→20:25)
[2016-11-06] MEDS: Tiotropium Inhaler 18 MCG Inhalation Powder Cap Kit of 5 INH SCH (07:38)
[2016-11-06] MEDS: Formoterol/Mometasone 200-5 MCG 8.8 GM Inhaler IH SCH ×2 (07:38→20:24)
[2016-11-06] MEDS: Levofloxacin 250 MG Tab PO SCH (08:29)
[2016-11-06] MEDS: busPIRone 5 MG Tab PO SCH ×2 (08:29→20:24)
[2016-11-06] MEDS: predniSONE 20 MG Tab PO SCH (08:29)
[2016-11-06] MEDS: Cyanocobalamin (Vitamin B12) 1,000 MCG Tab SL SCH (08:30)
[2016-11-06] MEDS: Clopidogrel 75 MG Tab PO SCH (08:30)
[2016-11-06] MEDS: atorvaSTATin 20 MG Tab PO SCH (08:30)
[2016-11-06] MEDS: Aspirin 81 MG Tab.Chew PO SCH (08:30)
[2016-11-06] MEDS: Levofloxacin 500 MG Tab PO SCH (08:31)
[2016-11-06] MEDS: amLODIPine 5 MG Tab PO SCH (08:31)
[2016-11-06] MEDS: Polyethylene Glycol 3350 Powder 17 GM Packet PO SCH (08:32)
[2016-11-06] MEDS: cefTRIAXone 2 GM in Sodium Chloride 0.9% 50 ML IV SCH (08:35)
[2016-11-06] MEDS: Lisinopril 20 MG Tab PO SCH (10:59)
--- NOTE | 2016-11-06 17:46 | PCM.PN ---
- General Info Date of Service: 11/06/16 Functional Status: Reports: Tolerating Diet, Ambulating - Review of Systems General: Reports: Weakness. Denies: Fever, Chills Pulmonary: Reports: Shortness of Breath, Cough. Denies: Sputum, Hemoptysis, Wheezing Cardiovascular: Reports: Dyspnea on Exertion. Denies: Chest Pain, Palpitations , Orthopnea, PND, Edema Gastrointestinal: Reports: No Symptoms Systems Review Comment:: Mr. Azul has noted significant improvement in his shortness of breath and cough over the past 24 hours. Vital signs have remained stable and he has been afebrile, white blood cell count still moderately elevated. Some of this elevation may be secondary to glucocorticoid therapy. - Patient Data Vitals - Most Recent: Last Vital Signs Temp 97.3 F 11/06/16 14:42 Pulse 102 H 11/06/16 14:58 Resp 16 11/06/16 14:42 BP 114/64 11/06/16 14:42 Pulse Ox 95 11/06/16 14:58 Weight - Most Recent: 170 lb I&O - Last 24 Hours: Intake & Output 11/06/16 11/06/16 11/06/16 06:59 14:59 22:59 Intake Total 600 Balance 600 Lab Results Last 24 Hours: Laboratory Results - last 24 hr 11/06/16 11/06/16 Range/Units 04:50 04:50 WBC 14.2 H (4.5-11.0) K/uL RBC 4.42 (4.30-5.90) M/uL Hgb 12.4 (12.0-15.0) g/dL Hct 38.4 L (40.0-54.0) % MCV 87 (80-98) fL MCH 28 (27-31) pg MCHC 32 (32-36) % Plt Count 183 (150-400) K/uL Neut % (Auto) 91 H (36-66) % Lymph % (Auto) 3 L (24-44) % [place] % (Auto) 5 (2-6) % Eos % (Auto) 0 L (2-4) % Baso % (Auto) 0 (0-1) % Sodium 141 (140-148) mmol/L Potassium 4.2 (3.6-5.2) mmol/L Chloride 107 (100-108) mmol/L Carbon Dioxide 29 (21-32) mmol/L Anion Gap 4.8 L (5.0-14.0) mmol/L BUN 16 (7-18) mg/dL Creatinine 0.8 (0.8-1.3) mg/dL Est Cr Clr Drug Dosing 73.10 mL/min Estimated GFR (MDRD) > 60 (>60) Glucose 173 H (74-106) mg/dL Calcium 8.1 L (8.5-10.1) mg/dL Nico Results Last 24 Hours: Microbiology 11/05/16 07:22 Gram Stain - Final Sputum - Expectorated Respiratory Culture - Preliminary YEAST Med Orders - Current: Current Medications Acetaminophen (Tylenol) 650 mg PO Q4H PRN PRN Reason: Pain (Mild 1-3)/fever Albuterol (Proventil Neb Soln) 2.5 mg NEB Q4H PRN PRN Reason: Shortness Of Breath/wheezing Albuterol/Ipratropium (Duoneb 3.0-0.5 Mg/3 Ml) 3 ml NEB QIDRT [facility] Last Admin: 11/06/16 14:56 Dose: 3 ml Amlodipine Besylate (Norvasc) 5 mg PO DAILY [facility] Last Admin: 11/06/16 08:31 Dose: 5 mg Aspirin (Aspirin) 81 mg PO DAILY [facility] Last Admin: 11/06/16 08:30 Dose: 81 mg Atorvastatin Calcium (Lipitor) 80 mg PO DAILY [facility] Last Admin: 11/06/16 08:30 Dose: 80 mg Benzonatate (Tessalon Perles) 100 mg PO TID PRN PRN Reason: Cough Buspirone HCl (Buspar) 5 mg PO BID [facility] Last Admin: 11/06/16 08:29 Dose: 5 mg Clopidogrel Bisulfate (Plavix) 75 mg PO DAILY [facility] Last Admin: 11/06/16 08:30 Dose: 75 mg Cyanocobalamin (Vitamin B12) 1,000 mcg SL DAILY [facility] Last Admin: 11/06/16 08:30 Dose: 1,000 mcg Ceftriaxone Sodium 2 gm/ (Sodium Chloride) 50 mls @ 100 mls/hr IV Q24H [facility] Last Admin: 11/06/16 08:35 Dose: 100 mls/hr Ibuprofen (Motrin) 600 mg PO Q6H PRN PRN Reason: Pain/Fever Levofloxacin (Levaquin) 500 mg PO Q24H [facility] Last Admin: 11/06/16 08:31 Dose: 500 mg Levofloxacin (Levaquin) 250 mg PO Q24H [facility] Last Admin: 11/06/16 08:29 Dose: 250 mg Lisinopril (Prinivil) 20 mg PO DAILY [facility] Last Admin: 11/06/16 10:59 Dose: 20 mg Magnesium Hydroxide (Milk Of Magnesia) 30 ml PO BID PRN PRN Reason: Constipation Last Admin: 11/05/16 20:10 Dose: 30 ml Mometasone Furoate/Formoterol Fumar (Dulera 200-5 Mcg) 0 puff IH BIDRT [facility] Last Admin: 11/06/16 07:38 Dose: 2 puff Ondansetron HCl (Zofran Odt) 4 mg PO Q6H PRN PRN Reason: Nausea able to take PO Ondansetron HCl (Zofran) 4 mg IV Q6H PRN PRN Reason: Nausea/Vomiting Polyethylene Glycol (Miralax) 17 gm PO BEDTIME PRN PRN Reason: Constipation Polyethylene Glycol (Miralax) 17 gm PO DAILY [facility] Last Admin: 11/06/16 08:32 Dose: 17 gm Prednisone (Prednisone) 20 mg PO DAILY@0800 [facility] Ranitidine HCl (Zantac) 150 mg PO DAILY [facility] Last Admin: 11/06/16 08:30 Dose: 150 mg Senna/Docusate Sodium (Senna Plus) 1 tab PO BID PRN PRN Reason: Constipation Tiotropium [place] (Spiriva Handihaler) 18 mcg INH DAILYRT [facility] Last Admin: 11/06/16 07:38 Dose: 1 cap Discontinued Medications Albuterol (Proventil Neb Soln) 2.5 mg NEB ONETIME ONE Stop: 11/04/16 04:53 Last Admin: 11/04/16 04:59 Dose: 2.5 mg Sodium Chloride (Normal Saline) 1,000 mls @ 250 mls/hr IV ASDIRECTED [facility] Last Admin: 11/04/16 05:50 Dose: 250 mls/hr Levofloxacin/Dextrose 500 mg/ (Premix) 100 mls @ 100 mls/hr IV ONETIME ONE Stop: 11/04/16 06:52 Last Admin: 11/04/16 06:19 Dose: 100 mls/hr Sodium Chloride (Normal Saline) 1,000 mls @ 125 mls/hr IV ASDIRECTED [facility] Last Admin: 11/05/16 12:25 Dose: 125 mls/hr Methylprednisolone Sodium Succinate (Solu-Medrol) 125 mg IVPUSH ONETIME ONE Stop: 11/04/16 05:33 Last Admin: 11/04/16 05:53 Dose: 125 mg Methylprednisolone Sodium Succinate (Solu-Medrol) 62.5 mg IVPUSH Q8H [facility] Stop: 11/05/16 00:01 Last Admin: 11/05/16 00:12 Dose: 62.5 mg Polyethylene Glycol (Miralax) 17 gm PO ONETIME ONE Stop: 11/05/16 16:20 Last Admin: 11/05/16 16:19 Dose: 17 gm Prednisone (Prednisone) 20 mg PO BIDAC [facility] Last Admin: 11/06/16 08:29 Dose: 20 mg - Exam Quality Assessment: Supplemental Oxygen, DVT Prophylaxis General: Alert, Oriented, Cooperative, Mild Distress Lungs: Decreased Breath Sounds, Wheezing. No: Crackles, Rales, Rhonchi Cardiovascular: Regular Rate, Regular Rhythm, No Murmurs GI/Abdominal Exam: Normal Bowel Sounds, Soft, Non-Tender, No Distention Extremities: Normal Inspection, No Pedal Edema Skin: Warm, Dry, Intact - Problem List Review Problem List Initiated/Reviewed/Updated: Yes - My Orders Last 24 Hours: My Active Orders 11/07/16 05:00 BASIC METABOLIC PANEL,BMP [CHEM] Timed CBC WITH AUTO DIFF [HEME] Timed 11/07/16 08:00 predniSONE 20 mg PO DAILY@0800 - Plan Plan:: Assessment and plan - Right lower lobe pneumonia - infiltrate right lower lung. History and examination consistent with pneumonia in this location as well. He is at a higher risk given his severe oxygen dependent COPD. He has leukocytosis but no evidence for sepsis at this time. He has hypoxia beyond his baseline. Good improvement in shortness of breath and cough over the past 24 hours -Extended spectrum antibiotics with levofloxacin and ceftriaxone -Follow-up cultures -Supplement oxygen -Tessalon Perles as needed for cough COPD with acute exacerbation - no significant wheezing at the time of my examination but wheezing was reported on arrival. He has received steroids. I think he would benefit from a short burst of steroids given his severe COPD. -Scheduled and as needed nebulizers -Prednisone 20 mg by mouth daily -Continue Advair and Spiriva Maintenance issues - - DVT prophylaxis - mechanical - GI prophylaxis - H2 joe - Nutrition - regular diet - Carias catheter - not indicated CODE STATUS - patient is interested in having CPR should he have a cardiac arrest but is not interested in intubation. Admission justification - This patient will be admitted for inpatient services and is medically appropriate meeting medical necessity for inpatient admission as outlined in my documentation. I reasonably expect the patient will require inpatient services that span a period time over 2 midnights. I reasonably expect this patient to be discharged or transferred within 96 hours after admission to the [facility]. Disposition - anticipate discharge home tomorrow Primary care physician - Dr. Lafleur
[2016-11-07] MEDS: Formoterol/Mometasone 200-5 MCG 8.8 GM Inhaler IH SCH (07:26)
[2016-11-07] MEDS: Albuterol/Ipratropium 3.0-0.5 MG/3 ML Neb Soln NEB SCH ×2 (07:26→10:40)
[2016-11-07] MEDS: Tiotropium Inhaler 18 MCG Inhalation Powder Cap Kit of 5 INH SCH (07:33)
[2016-11-07] MEDS ORDERED: predniSONE 20 MG Tab PO SCH (08:00)
[2016-11-07] MEDS: Levofloxacin 250 MG Tab PO SCH (08:04)
[2016-11-07] MEDS: Levofloxacin 500 MG Tab PO SCH (08:04)
[2016-11-07] MEDS: cefTRIAXone 2 GM in Sodium Chloride 0.9% 50 ML IV SCH (09:34)
[2016-11-07 09:44] VITALS: BP 121/65
[2016-11-07] MEDS: Aspirin 81 MG Tab.Chew PO SCH (09:45)
[2016-11-07] MEDS: atorvaSTATin 20 MG Tab PO SCH (09:46)
[2016-11-07] MEDS: Polyethylene Glycol 3350 Powder 17 GM Packet PO SCH (09:46)
[2016-11-07] MEDS: busPIRone 5 MG Tab PO SCH (09:46)
[2016-11-07] MEDS: Lisinopril 20 MG Tab PO SCH (09:46)
[2016-11-07] MEDS: amLODIPine 5 MG Tab PO SCH (09:47)
[2016-11-07] MEDS: Clopidogrel 75 MG Tab PO SCH (09:47)
[2016-11-07] MEDS: Cyanocobalamin (Vitamin B12) 1,000 MCG Tab SL SCH (09:47)
--- NOTE | 2016-11-07 12:35 | PCM.DCSUM1 ---
Discharge Summary - Hospital Course Brief History: Mr. Azul is a 76-year-old gentleman with a known history of oxygen-dependent COPD. He presented to the emergency department with a recent history of cough, increased shortness of breath, and fever. - Discharge Data Discharge Date: 11/07/16 Discharge Disposition: Home, Self-Care 01 Condition: Fair - Discharge Diagnosis/Problem(s) (1) Constipation SNOMED Code(s): 29883612 ICD Code: K59.00 - CONSTIPATION, UNSPECIFIED Status: Acute Current Visit : Yes (2) COPD exacerbation SNOMED Code(s): 613210567, 168596404 ICD Code: J44.1 - CHRONIC OBSTRUCTIVE PULMONARY DISEASE W (ACUTE) EXACERBATION Status: Acute Current Visit: Yes (3) Right lower lobe pneumonia SNOMED Code(s): 639222683 ICD Code: J18.1 - LOBAR PNEUMONIA, UNSPECIFIED ORGANISM Status: Acute Current Visit: Yes Qualifiers: Pneumonia type: due to unspecified organism Qualified Code(s): J18.1 - Lobar pneumonia, unspecified organism - Patient Summary/Data Hospital Course: Mr. Azul is a 76-year-old gentleman with a known history of oxygen-dependent COPD. Over a period of a few days prior to admission he developed fever, cough, and increased shortness of breath. On evaluation in the emergency department was noted to have a probable right lung infiltrate associated with borderline oxygen saturation and elevated white blood cell count. He was admitted to the hospital with diagnosis of pneumonia and COPD exacerbation. He was given IV fluids for hydration and started on IV antibiotic therapy with levofloxacin and ceftriaxone. Expanded IV antibiotic coverage was chosen because of his history of ongoing antibiotic use and risk for resistant organisms. He was given IV Solu -Medrol as well as nebulizer therapy and supplemental oxygen as needed to maintain saturations greater than 90%. He also had a history of recent difficulty with constipation, he was given [place] lax with good results and had no further difficulty with constipation during the hospital stay. By the time of discharge and noted good improvement in his shortness of breath. White blood cell count remained elevated but likely secondary to glucocorticoid therapy. He had no further temperature elevations during hospital stay. He will be discharged home on oral antibiotic therapy with levofloxacin 750 mg daily for an additional 5 days. Activity will be as tolerated and he will resume his usual diet. Follow-up appointment should be scheduled with his primary care provider Dr. Lee within one week. - Patient Instructions Diet: Usual Diet as Tolerated Activity: As Tolerated Other/Special Instructions: Please schedule follow-up appointment with Dr. Lafleur within one week. - Discharge Plan Prescriptions/Med Rec: Levofloxacin [Levaquin] 750 mg PO Q24H #5 tablet Home Medications: Home Meds Albuterol Sulfate [Proair Hfa] 90 mcg IH Q6HR PRN 09/29/13 [History] Fish Oil/Borage/Flax/Om3,6,9#1 [[place] 3-6-9 Complex Softgel] 1 each PO DAILY [History] Aspirin 81 mg PO DAILY 09/19/15 [History] Cholecalciferol (Vitamin D3) [Vitamin D3] 2,000 unit PO DAILY 09/19/15 [History] Clopidogrel [Plavix] 75 mg PO DAILY 09/19/15 [History] Lisinopril [Zestril] 20 mg PO DAILY 09/19/15 [History] Tiotropium [Spiriva HandiHaler] 1 cap INH DAILY 09/19/15 [History] amLODIPine [Norvasc] 5 mg PO DAILY 09/19/15 [History] busPIRone [Buspar] 5 mg PO BID 09/19/15 [History] atorvaSTATin [Lipitor] 80 mg PO DAILY 01/09/16 [History] Albuterol Sulfate [Proair Respiclick] 90 mcg IH Q6HR PRN 11/04/16 [History] Azithromycin [Zithromax] 500 mg PO ASDIRECTED 11/04/16 [History] Cyanocobalamin (Vitamin B-12) [Vitamin B-12] 1,000 mcg SL DAILY 11/04/16 [ History] Fluticasone/Salmeterol [Advair Diskus 500-50] 1 puff INH BID 11/04/16 [History] Ranibizumab [Lucentis] 0.5 mg Q3M 11/04/16 [History] Ranitidine [Zantac] 150 mg PO DAILY 11/04/16 [History] Levofloxacin [Levaquin] 750 mg PO Q24H #5 tablet 11/07/16 [Rx] Referrals: Matty Lafleur MD [Primary Care Provider] - - Patient Data Vitals - Most Recent: Last Vital Signs Temp 98.8 F 11/07/16 09:43 Pulse 76 11/07/16 10:41 Resp 15 11/07/16 09:43 BP 121/65 11/07/16 09:47 Pulse Ox 93 L 11/07/16 09:43 Weight - Most Recent: 170 lb I&O - Last 24 hours: Intake & Output 11/06/16 11/07/16 11/07/16 22:59 06:59 14:59 Intake Total 600 1010 Balance 600 1010 Lab Results - Last 24 hrs: Laboratory Results - last 24 hr 11/07/16 11/07/16 Range/Units 04:47 04:47 WBC 11.1 H (4.5-11.0) K/uL RBC 4.95 (4.30-5.90) M/uL Hgb 14.0 (12.0-15.0) g/dL Hct 43.2 (40.0-54.0) % MCV 87 (80-98) fL MCH 28 (27-31) pg MCHC 32 (32-36) % Plt Count 186 (150-400) K/uL Neut % (Auto) 83 H (36-66) % Lymph % (Auto) 9 L (24-44) % [place] % (Auto) 8 H (2-6) % Eos % (Auto) 0 L (2-4) % Baso % (Auto) 0 (0-1) % Sodium 142 (140-148) mmol/L Potassium 3.9 (3.6-5.2) mmol/L Chloride 105 (100-108) mmol/L Carbon Dioxide 35 H (21-32) mmol/L Anion Gap 5.9 (5.0-14.0) mmol/L BUN 11 (7-18) mg/dL Creatinine 0.8 (0.8-1.3) mg/dL Est Cr Clr Drug Dosing 73.10 mL/min Estimated GFR (MDRD) > 60 (>60) Glucose 87 (74-106) mg/dL Calcium 8.3 L (8.5-10.1) mg/dL JAVIER Results - Last 24 hrs: Microbiology 11/05/16 07:22 Gram Stain - Final Sputum - Expectorated Respiratory Culture - Final YEAST Med Orders - Current: Current Medications Acetaminophen (Tylenol) 650 mg PO Q4H PRN PRN Reason: Pain (Mild 1-3)/fever Albuterol (Proventil Neb Soln) 2.5 mg NEB Q4H PRN PRN Reason: Shortness Of Breath/wheezing Albuterol/Ipratropium (Duoneb 3.0-0.5 Mg/3 Ml) 3 ml NEB QIDRT [facility] Last Admin: 11/07/16 10:40 Dose: 3 ml Amlodipine Besylate (Norvasc) 5 mg PO DAILY [facility] Last Admin: 11/07/16 09:47 Dose: 5 mg Aspirin (Aspirin) 81 mg PO DAILY [facility] Last Admin: 11/07/16 09:45 Dose: 81 mg Atorvastatin Calcium (Lipitor) 80 mg PO DAILY [facility] Last Admin: 11/07/16 09:46 Dose: 80 mg Benzonatate (Tessalon Perles) 100 mg PO TID PRN PRN Reason: Cough Buspirone HCl (Buspar) 5 mg PO BID [facility] Last Admin: 11/07/16 09:46 Dose: 5 mg Clopidogrel Bisulfate (Plavix) 75 mg PO DAILY [facility] Last Admin: 11/07/16 09:47 Dose: 75 mg Cyanocobalamin (Vitamin B12) 1,000 mcg SL DAILY [facility] Last Admin: 11/07/16 09:47 Dose: 1,000 mcg Ceftriaxone Sodium 2 gm/ (Sodium Chloride) 50 mls @ 100 mls/hr IV Q24H [facility] Last Admin: 11/07/16 09:34 Dose: 100 mls/hr Ibuprofen (Motrin) 600 mg PO Q6H PRN PRN Reason: Pain/Fever Levofloxacin (Levaquin) 500 mg PO Q24H [facility] Last Admin: 11/07/16 08:04 Dose: 500 mg Levofloxacin (Levaquin) 250 mg PO Q24H [facility] Last Admin: 11/07/16 08:04 Dose: 250 mg Lisinopril (Prinivil) 20 mg PO DAILY [facility] Last Admin: 11/07/16 09:46 Dose: 20 mg Magnesium Hydroxide (Milk Of Magnesia) 30 ml PO BID PRN PRN Reason: Constipation Last Admin: 11/05/16 20:10 Dose: 30 ml Mometasone Furoate/Formoterol Fumar (Dulera 200-5 Mcg) 0 puff IH BIDRT [facility] Last Admin: 11/07/16 07:26 Dose: 2 puff Ondansetron HCl (Zofran Odt) 4 mg PO Q6H PRN PRN Reason: Nausea able to take PO Ondansetron HCl (Zofran) 4 mg IV Q6H PRN PRN Reason: Nausea/Vomiting Polyethylene Glycol (Miralax) 17 gm PO BEDTIME PRN PRN Reason: Constipation Polyethylene Glycol (Miralax) 17 gm PO DAILY [facility] Last Admin: 11/07/16 09:46 Dose: Not Given Prednisone (Prednisone) 20 mg PO DAILY@0800 [facility] Last Admin: 11/07/16 08:04 Dose: 20 mg Ranitidine HCl (Zantac) 150 mg PO DAILY [facility] Last Admin: 11/07/16 09:47 Dose: 150 mg Senna/Docusate Sodium (Senna Plus) 1 tab PO BID PRN PRN Reason: Constipation Tiotropium [place] (Spiriva Handihaler) [facility] Admin: 11/07/16 07:33 Dose: 1 cap Discontinued Medications Albuterol (Proventil Neb Soln) 2.5 mg NEB ONETIME ONE Stop: 11/04/16 04:53 Last Admin: 11/04/16 04:59 Dose: 2.5 mg Sodium Chloride (Normal Saline) 1,000 mls @ 250 mls/hr IV ASDIRECTED [facility] Last Admin: 11/04/16 05:50 Dose: 250 mls/hr Levofloxacin/Dextrose 500 mg/ (Premix) 100 mls @ 100 mls/hr IV ONETIME ONE Stop: 11/04/16 06:52 Last Admin: 11/04/16 06:19 Dose: 100 mls/hr Sodium Chloride (Normal Saline) 1,000 mls @ 125 mls/hr IV ASDIRECTED [facility] Last Admin: 11/05/16 12:25 Dose: 125 mls/hr Methylprednisolone Sodium Succinate (Solu-Medrol) 125 mg IVPUSH ONETIME ONE Stop: 11/04/16 05:33 Last Admin: 11/04/16 05:53 Dose: 125 mg Methylprednisolone Sodium Succinate (Solu-Medrol) 62.5 mg IVPUSH Q8H [facility] Stop: 11/05/16 00:01 Last Admin: 11/05/16 00:12 Dose: 62.5 mg Polyethylene Glycol (Miralax) 17 gm PO ONETIME ONE Stop: 11/05/16 16:20 Last Admin: 11/05/16 16:19 Dose: 17 gm Prednisone (Prednisone) 20 mg PO BIDAC [facility] Last Admin: 11/06/16 08:29 Dose: 20 mg *Q Meaningful Use (DIS) - VTE *Q VTE Criteria *Q: - Stroke *Q Stroke Criteria *Q: - AMI *Q AMI Criteria *Q:
== END 2016-11-07 13:35 | disposition home or self-care (01) | DRG 193 ==
LOC: JP.ED 04:05 → JP.MS 07:54
PROVIDERS: ADMIT Internal Medicine; ATTEND Hospitalist
DX: J18.1 Lobar pneumonia, unspecified organism (principal); J96.91 Respiratory failure, unspecified with hypoxia; J44.1 Chronic obstructive pulmonary disease with (acute) exacerbation; I10 Essential (primary) hypertension; Z99.81 Dependence on supplemental oxygen; Z87.891 Personal history of nicotine dependence; K59.00 Constipation, unspecified; I25.10 Atherosclerotic heart disease of native coronary artery without angina pectoris; F41.9 Anxiety disorder, unspecified; Z87.01 Personal history of pneumonia (recurrent); Z95.5 Presence of coronary angioplasty implant and graft; H54.7 Unspecified visual loss; H91.90 Unspecified hearing loss, unspecified ear; Z85.828 Personal history of other malignant neoplasm of skin; H35.30 Unspecified macular degeneration; Z79.82 Long term (current) use of aspirin; Z88.5 Allergy status to narcotic agent; Z88.0 Allergy status to penicillin; Z88.8 Allergy status to other drugs, medicaments and biological substances
CPT/HCPCS: 36415; 36600; 71010; 71010-26; 80048; 80053; 82803; 83605; 83880; 85025; 85027; 87040; 87070; 87077; 87205; 93005; 93010; 94640; 94640-76; 94664; 94667; 94668; 96361; 96374; 99285; 99285-25; A9270-GY; J0696; J1956; J2930; J7040; J7050; J7620

== ENCOUNTER 2018-07-02 13:30 | Emergency (ER) | payer MEDICARE, BC ==
--- NOTE | 2018-07-02 14:47 | EDM.PDOC ---
ED HPI GENERAL MEDICAL PROBLEM - General Chief Complaint: Cardiovascular Problem Stated Complaint: IRREGULAR HEART RHYTHM Time Seen by Provider: 07/02/18 14:20 Source of Information: Reports: Patient History Limitations: Reports: No Limitations - History of Present Illness INITIAL COMMENTS - FREE TEXT/NARRATIVE: 78-year-old male presented to rehabilitation this afternoon, and when they were taking his initial vitals they found him to have an irregular heartbeat. He is completely asymptomatic. They put him on a monitor and it appeared to be atrial fibrillation. They called Dr. Lafleur, his primary provider and he informed them to send the patient to the emergency room. On arrival he has no symptoms. He has not recently been ill. He does have known coronary disease and did receive a stent within the last few years. He thinks he may have been in atrial fibrillation "a long time". He is on aspirin and Plavix. Onset: Unknown/Unsure Associated Symptoms: Reports: No Other Symptoms - Related Data Allergies Allergy/AdvReac Type Severity Reaction Status Date / Time zolpidem tartrate Allergy Other Verified 11/04/16 04:20 [From Ambien] codeine phosphate AdvReac Nausea and Verified 11/04/16 04:20 [From Tylenol-Codeine] Vomiting Penicillins AdvReac Swelling Verified 11/04/16 04:20 Home Meds: Home Meds Albuterol Sulfate [Proair Hfa] 90 mcg IH Q6HR PRN 09/29/13 [History] Fish Oil/Borage/Flax/Om3,6,9#1 [[place] 3-6-9 Complex Softgel] 1 each PO DAILY [History] Aspirin 81 mg PO DAILY 09/19/15 [History] Cholecalciferol (Vitamin D3) [Vitamin D3] 2,000 unit PO DAILY 09/19/15 [History] Clopidogrel [Plavix] 75 mg PO DAILY 09/19/15 [History] Lisinopril [Zestril] 20 mg PO DAILY 09/19/15 [History] Tiotropium [Spiriva HandiHaler] 1 cap INH DAILY 09/19/15 [History] amLODIPine [Norvasc] 5 mg PO DAILY 09/19/15 [History] busPIRone [Buspar] 5 mg PO BID 09/19/15 [History] atorvaSTATin [Lipitor] 80 mg PO DAILY 01/09/16 [History] Albuterol Sulfate [Proair Respiclick] 90 mcg IH Q6HR PRN 11/04/16 [History] Azithromycin [Zithromax] 500 mg PO ASDIRECTED 11/04/16 [History] Cyanocobalamin (Vitamin B-12) [Vitamin B-12] 1,000 mcg SL DAILY 11/04/16 [ History] Fluticasone/Salmeterol [Advair Diskus 500-50] 1 puff INH BID 11/04/16 [History] Ranibizumab [Lucentis] 0.5 mg Q3M 11/04/16 [History] Ranitidine [Zantac] 150 mg PO DAILY 11/04/16 [History] Levofloxacin [Levaquin] 750 mg PO Q24H #5 tablet 11/07/16 [Rx] Past Medical History HEENT History: Reports: Cataract, Hard of Hearing, Impaired Vision, Macular Degeneration Cardiovascular History: Reports: CAD, High Cholesterol, Hypertension, SOB on Exertion, Stents Respiratory History: Reports: COPD, Pneumonia, Recurrent, SOB Other Respiratory History: Home oxygen Gastrointestinal History: Reports: Colon Polyp, Other (See Below) Other Gastrointestinal History: constipation Genitourinary History: Reports: BPH Musculoskeletal History: Reports: Fracture Psychiatric History: Reports: Anxiety Oncologic (Cancer) History: Reports: Basal Cell Carcinoma Other Oncologic History: skin Dermatologic History: Reports: Psoriasis - Infectious Disease History Infectious Disease History: Reports: Chicken Pox, Mumps, Rheumatic Fever - Past Surgical History Cardiovascular Surgical History: Reports: Coronary Artery Stent Musculoskeletal Surgical History: Reports: Other (See Below) Other Musculoskeletal Surgeries/Procedures:: ankle surgery Social & Family History - Family History Respiratory: Reports: COPD - Tobacco Use Smoking Status *Q: Never Smoker - Caffeine Use Caffeine Use: Reports: Soda - Recreational Drug Use Recreational Drug Use: No ED ROS GENERAL - Review of Systems Review Of Systems: See Below Constitutional: Denies: Fever, Chills HEENT: Reports: No Symptoms Respiratory: Reports: No Symptoms Cardiovascular: Reports: No Symptoms GI/Abdominal: Reports: No Symptoms : Reports: No Symptoms Skin: Reports: No Symptoms Neurological: Reports: No Symptoms Psychiatric: Reports: No Symptoms ED EXAM, GENERAL - Physical Exam Exam: See Below Exam Limited By: No Limitations General Appearance: Alert, No Apparent Distress Head: Atraumatic, Normocephalic Respiratory/Chest: No Respiratory Distress, Lungs Clear Cardiovascular: Irregularly Irregular. No: Tachycardia GI/Abdominal: Soft, Non-Tender Extremities: No: Pedal Edema Neurological: Alert, Oriented Psychiatric: Normal Affect, Normal Mood Skin Exam: Warm, Dry EKG INTERPRETATION EKG Date: 07/02/18 Rhythm: A-Fib Course - Vital Signs Last Recorded V/S: Last Vital Signs Temp 96.7 F 07/02/18 14:41 Pulse 72 07/02/18 16:02 Resp 16 07/02/18 14:41 BP 159/101 H 07/02/18 16:02 Pulse Ox 93 L 07/02/18 15:00 - Orders/Labs/Meds Orders: Active Orders 24 hr Category Date Time Status EKG Documentation Completion [RC] ASDIRECTED Care 07/02/18 14:27 Active EKG 12 Lead [EK] Routine Ther 07/02/18 14:27 Ordered Labs: Laboratory Tests 07/02/18 07/02/18 Range/Units 11:43 11:43 WBC 7.9 (4.5-11.0) K/uL RBC 5.47 (4.30-5.90) M/uL Hgb 15.4 H (12.0-15.0) g/dL Hct 48.4 (40.0-54.0) % MCV 89 (80-98) fL MCH 28 (27-31) pg MCHC 32 (32-36) % Plt Count 174 (150-400) K/uL Neut % (Auto) 74 H (36-66) % Lymph % (Auto) 16 L (24-44) % [place] % (Auto) 9 H (2-6) % Eos % (Auto) 1 L (2-4) % Baso % (Auto) 0 (0-1) % Sodium 142 (140-148) mmol/L Potassium 4.0 (3.6-5.2) mmol/L Chloride 104 (100-108) mmol/L Carbon Dioxide 32 (21-32) mmol/L Anion Gap 6.5 (5.0-14.0) mmol/L BUN 12 (7-18) mg/dL Creatinine 0.9 (0.8-1.3) mg/dL Est Cr Clr Drug Dosing 63.01 mL/min Estimated GFR (MDRD) > 60 (>60) Glucose 91 (74-106) mg/dL Calcium 8.9 (8.5-10.1) mg/dL Total Bilirubin 0.9 (0.2-1.0) mg/dL AST 20 (15-37) U/L ALT 30 (12-78) U/L Alkaline Phosphatase 91 (46-116) U/L Troponin I < 0.017 (0.000-0.056) ng/mL Total Protein 6.6 (6.4-8.2) g/dL Albumin 3.6 (3.4-5.0) g/dL Globulin 3.0 (2.3-3.5) g/dL Albumin/Globulin Ratio 1.2 (1.2-2.2) TSH, Ultra Sensitive 0.940 (0.358-3.740) uIU/mL - Re-Assessments/Exams Free Text/Narrative Re-Assessment/Exam: 07/02/18 14:46 EKG confirmed atrial fibrillation, on the monitoring coordinator he also has occasional PVCs. Completely asymptomatic. Absolutely no way of knowing how long he's been in atrial fibrillation. The last EKG or lab we have in the emergency room is 2 years ago. He was in sinus rhythm at that time. A CBC, CMP, troponin and TSH were obtained. 07/02/18 15:58 Patient remained in atrial fibrillation during his ER visit. Rate control was excellent. He had no symptoms. He is extended chemistry profile as well as TSH were all normal. I encouraged him to continue his medications as prescribed, and keep his appointment with Dr. Lafleur tomorrow. Dr. Lafleur did return a call prior to the patient being discharged and was agreeable to the plan. Departure - Departure Time of Disposition: 16:07 Disposition: Home, Self-Care 01 Condition: Good Clinical Impression: Atrial fibrillation Qualifiers: Atrial fibrillation type: unspecified Qualified Code(s): I48.91 - Unspecified atrial fibrillation Instructions: Atrial Fibrillation, [id number] Referrals: Matty Lafleur MD [Primary Care Provider] - Forms: ED Department Discharge Care Plan Goals: Continue your current medications, return anytime if worsening such as chest pain or significant shortness of breath. Keep your appointment tomorrow as scheduled. - My Orders Last 24 Hours: My Active Orders 07/02/18 14:27 EKG Documentation Completion [RC] ASDIRECTED EKG 12 Lead [EK] Routine - Assessment/Plan Last 24 Hours: My Active Orders 07/02/18 14:27 EKG Documentation Completion [RC] ASDIRECTED EKG 12 Lead [EK] Routine
[2018-07-02 16:03] VITALS: BP 159/101
== END 2018-07-02 16:07 | disposition home or self-care (01) ==
LOC: JP.ED 13:30
DX: I48.91 Unspecified atrial fibrillation (principal); I10 Essential (primary) hypertension; E78.00 Pure hypercholesterolemia, unspecified; I25.10 Atherosclerotic heart disease of native coronary artery without angina pectoris; F41.9 Anxiety disorder, unspecified; Z85.828 Personal history of other malignant neoplasm of skin; Z79.82 Long term (current) use of aspirin; Z79.899 Other long term (current) drug therapy; Z88.0 Allergy status to penicillin; Z88.5 Allergy status to narcotic agent
CPT/HCPCS: 36415; 80053; 84443; 84484; 85025; 93005; 99284-25

== ENCOUNTER 2018-09-01 12:20 | Emergency (ER) | payer MEDICARE, BC ==
[2018-09-01 12:24] VITALS: BP 140/86
--- NOTE | 2018-09-01 13:05 | EDM.PDOC ---
ED HPI GENERAL MEDICAL PROBLEM - General Chief Complaint: General Stated Complaint: MEDICAL VIA [facility] Time Seen by Provider: 09/01/18 12:30 Source of Information: Reports: Patient, EMS, Family History Limitations: Reports: No Limitations - History of Present Illness INITIAL COMMENTS - FREE TEXT/NARRATIVE: 78-year-old male with COPD and atrial fibrillation brought in by ambulance with 12 hours of significant delirium. It is unusual for him to have significant confusion, but this morning he didn't recognize his family, did not know where he was, had no concept of time and was truly delusional. He was very confused this morning when his significant other went to work, and after she went to work she got called by him and he said there were people trying to fix things in the closet, he was hallucinating, and she had to return back home. He was very agitated, lying on the floor getting up lying on the floor and did not want to let her in the house because he did not recognize her. He has not been significantly hypoxic, feverish, short of breath, he hasn't had any recent trauma that she knows of. He does have a large ecchymotic bruise in the medial aspect of the right thigh which is spontaneous from being on the lawnmower a few days ago, he also had a bruise on his left chest that is resolved. He's been on Coumadin for 2 months. He remains in atrial fibrillation. Apparently he continues to be on 2 L of O2 on a continuous basis and was wearing it last night. He is on a prophylactic dose of Zithromax every other day but the cost went up recently so he stopped it in the last few weeks. Onset: Gradual Duration: Day(s): (Over the past 12-24 hours) Associated Symptoms: Reports: Confusion, Shortness of Breath (Chronic and stable ). Denies: Chest Pain, Cough, Diaphoresis, Loss of Appetite, Nausea/Vomiting, Weakness - Related Data Allergies Allergy/AdvReac Type Severity Reaction Status Date / Time zolpidem tartrate Allergy Other Verified 11/04/16 04:20 [From Ambien] codeine phosphate AdvReac Nausea and Verified 11/04/16 04:20 [From Tylenol-Codeine] Vomiting Penicillins AdvReac Swelling Verified 11/04/16 04:20 Home Meds: Home Meds Fish Oil/Borage/Flax/Om3,6,9#1 [[place] 3-6-9 Complex Softgel] 1 each PO DAILY [History] Aspirin 81 mg PO DAILY 09/19/15 [History] Cholecalciferol (Vitamin D3) [Vitamin D3] 2,000 unit PO DAILY 09/19/15 [History] Clopidogrel [Plavix] 75 mg PO DAILY 09/19/15 [History] Lisinopril [Zestril] 20 mg PO DAILY 09/19/15 [History] amLODIPine [Norvasc] 5 mg PO DAILY 09/19/15 [History] busPIRone [Buspar] 5 mg PO BID 09/19/15 [History] atorvaSTATin [Lipitor] 80 mg PO DAILY 01/09/16 [History] Albuterol Sulfate [Proair Respiclick] 90 mcg IH Q6HR PRN 11/04/16 [History] Azithromycin [Zithromax] 500 mg PO ASDIRECTED 11/04/16 [History] Cyanocobalamin (Vitamin B-12) [Vitamin B-12] 1,000 mcg SL DAILY 11/04/16 [ History] Fluticasone/Salmeterol [Advair Diskus 500-50] 1 puff INH BID 11/04/16 [History] Ranibizumab [Lucentis] 0.5 mg Q3M 11/04/16 [History] Ranitidine [Zantac] 150 mg PO DAILY 11/04/16 [History] Acetaminophen [Tylenol Extra Strength] 500 mg PO Q6H PRN 09/01/18 [History] Albuterol/Ipratropium [DuoNeb 3.0-0.5 MG/3 ML] 3 ml INH ASDIRECTED PRN 09/01/18 [History] Fluticasone/Umeclidin/Vilanter [Trelegy Ellipta 100-62.5-25] 09/01/18 [History] Propranolol HCl [Propranolol] 10 mg PO DAILY 09/01/18 [History] Warfarin Sodium 5 mg PO ASDIRECTED 09/01/18 [History] predniSONE [Deltasone] 5 mg PO DAILY 09/01/18 [History] Past Medical History HEENT History: Reports: Cataract, Hard of Hearing, Impaired Vision, Macular Degeneration Cardiovascular History: Reports: Afib, CAD, High Cholesterol, Hypertension, SOB on Exertion, Stents Respiratory History: Reports: COPD, Pneumonia, Recurrent, SOB Other Respiratory History: Home oxygen Gastrointestinal History: Reports: Colon Polyp, Other (See Below) Other Gastrointestinal History: constipation Genitourinary History: Reports: BPH Musculoskeletal History: Reports: Fracture Psychiatric History: Reports: Anxiety Oncologic (Cancer) History: Reports: Basal Cell Carcinoma Other Oncologic History: skin Dermatologic History: Reports: Psoriasis - Infectious Disease History Infectious Disease History: Reports: Chicken Pox, Mumps, Rheumatic Fever - Past Surgical History Cardiovascular Surgical History: Reports: Coronary Artery Stent Musculoskeletal Surgical History: Reports: Other (See Below) Other Musculoskeletal Surgeries/Procedures:: ankle surgery Social & Family History - Family History Respiratory: Reports: COPD - Tobacco Use Smoking Status *Q: Unknown Ever Smoked - Caffeine Use Caffeine Use: Reports: Coffee - Recreational Drug Use Recreational Drug Use: No ED ROS GENERAL - Review of Systems Review Of Systems: See Below Constitutional: Denies: Fever, Chills, Malaise HEENT: Reports: No Symptoms, Other (He is hard of hearing) Respiratory: Reports: Other (COPD is stable) Cardiovascular: Reports: Other (Atrial fibrillation, has an appointment with the cardiac leasing director in 3 weeks). Denies: Chest Pain Skin: Reports: Bruising (Has been bruising easier since starting Coumadin) Neurological: Reports: Confusion. Denies: Dizziness, Headache, Trouble Speaking , Difficulty Walking, Weakness ED EXAM, GENERAL - Physical Exam Exam: See Below Exam Limited By: No Limitations General Appearance: Alert, No Apparent Distress Eye Exam: Bilateral Eye: Normal Inspection Head: Atraumatic, Normocephalic Neck: Supple Respiratory/Chest: No Respiratory Distress, Lungs Clear Cardiovascular: Irregularly Irregular. No: Bradycardia, Tachycardia GI/Abdominal: Soft, Non-Tender Extremities: Other (No peripheral edema, no asymmetric weakness. A fairly large somewhat tender bruises present on the medial right thigh but no hematoma formation) Neurological: Alert, Oriented (Patient is now oriented to place and time but still slightly confused with some brief delay in answering questions) Course - Vital Signs Last Recorded V/S: Last Vital Signs Temp 97 F 09/01/18 12:24 Pulse 56 L 09/01/18 12:24 Resp 16 09/01/18 12:24 BP 140/86 09/01/18 12:24 Pulse Ox 96 09/01/18 12:24 - Orders/Labs/Meds Labs: Laboratory Tests 09/01/18 09/01/18 09/01/18 Range/Units 12:53 12:53 12:53 WBC 7.9 (4.5-11.0) K/uL RBC 5.24 (4.30-5.90) M/uL Hgb 14.6 (12.0-15.0) g/dL Hct 45.8 (40.0-54.0) % MCV 87 (80-98) fL MCH 28 (27-31) pg MCHC 32 (32-36) % Plt Count 242 (150-400) K/uL Neut % (Auto) 78 H (36-66) % Lymph % (Auto) 12 L (24-44) % [place] % (Auto) 9 H (2-6) % Eos % (Auto) 1 L (2-4) % Baso % (Auto) 0 (0-1) % PT 22.5 H (9.5-12.0) sec INR 2.14 H (0.80-1.20) ABG Hemoglobin (13.5-18.0) g/dL ABG Oxyhemoglobin % ABG Carboxyhemoglobin (0.0-1.6) % ABG Methemoglobin % VBG pH (7.350-7.450) VBG pCO2 mm/Hg VBG pO2 mm/Hg VBG HCO3 mmol/L VBG Total CO2 mmol/L VBG O2 Saturation VBG O2 Content %vol VBG Base Excess mm/L O2 Delivery Device Sodium 143 (140-148) mmol/L Potassium 3.7 (3.6-5.2) mmol/L Chloride 103 (100-108) mmol/L Carbon Dioxide 35 H (21-32) mmol/L Anion Gap 8.7 (5.0-14.0) mmol/L BUN 9 (7-18) mg/dL Creatinine 0.8 (0.8-1.3) mg/dL Est Cr Clr Drug Dosing 71.25 mL/min Estimated GFR (MDRD) > 60 (>60) Glucose 105 (74-106) mg/dL Calcium 8.9 (8.5-10.1) mg/dL Total Bilirubin 2.3 H D (0.2-1.0) mg/dL AST 21 (15-37) U/L ALT 26 (12-78) U/L Alkaline Phosphatase 105 (46-116) U/L Total Protein 6.5 (6.4-8.2) g/dL Albumin 3.5 (3.4-5.0) g/dL Globulin 3.0 (2.3-3.5) g/dL Albumin/Globulin Ratio 1.2 (1.2-2.2) 09/01/18 Range/Units 12:55 WBC (4.5-11.0) K/uL RBC (4.30-5.90) M/uL Hgb (12.0-15.0) g/dL Hct (40.0-54.0) % MCV (80-98) fL MCH (27-31) pg MCHC (32-36) % Plt Count (150-400) K/uL Neut % (Auto) (36-66) % Lymph % (Auto) (24-44) % [place] % (Auto) (2-6) % Eos % (Auto) (2-4) % Baso % (Auto) (0-1) % PT (9.5-12.0) sec INR (0.80-1.20) ABG Hemoglobin 15.2 (13.5-18.0) g/dL ABG Oxyhemoglobin 73.1 % ABG Carboxyhemoglobin 1.5 (0.0-1.6) % ABG Methemoglobin 0.6 % VBG pH 7.422 (7.350-7.450) VBG pCO2 49.2 mm/Hg VBG pO2 40.5 mm/Hg VBG HCO3 31.4 mmol/L VBG Total CO2 27.3 mmol/L VBG O2 Saturation 74.7 VBG O2 Content 15.5 %vol VBG Base Excess 6.1 mm/L O2 Delivery Device Room air Sodium (140-148) mmol/L Potassium (3.6-5.2) mmol/L Chloride (100-108) mmol/L Carbon Dioxide (21-32) mmol/L Anion Gap (5.0-14.0) mmol/L BUN (7-18) mg/dL Creatinine (0.8-1.3) mg/dL Est Cr Clr Drug Dosing mL/min Estimated GFR (MDRD) (>60) Glucose (74-106) mg/dL Calcium (8.5-10.1) mg/dL Total Bilirubin (0.2-1.0) mg/dL AST (15-37) U/L ALT (12-78) U/L Alkaline Phosphatase (46-116) U/L Total Protein (6.4-8.2) g/dL Albumin (3.4-5.0) g/dL Globulin (2.3-3.5) g/dL Albumin/Globulin Ratio (1.2-2.2) - Re-Assessments/Exams Free Text/Narrative Re-Assessment/Exam: 09/01/18 13:14 O2 saturations remained 93-95% on room air, ABGs were drawn on room air. Two- view chest x-ray, head CT, CBC, CMP were obtained. 09/01/18 13:55 Blood gases were near normal, CBC was normal, CMP reassuring. Bilirubin is mildly elevated at 2.3 but it's been elevated in the past. Chest x-ray showed no infiltrate, CT of the head showed age-related changes only. He returned to near baseline by discharge. He was restarted on his prophylactics Zithromax, one dose every 3 days and will return in the next 48 hours if symptoms recur. Continue with oxygen as before. Departure - Departure Time of Disposition: 14:03 Disposition: Home, Self-Care 01 Clinical Impression: Delirium COPD (chronic obstructive pulmonary disease) Qualifiers: COPD type: emphysema Emphysema type: unspecified Qualified Code(s): J43.9 - Emphysema, unspecified - Discharge Information Instructions: Delirium Referrals: PCP,None [Primary Care Provider] - Forms: ED Department Discharge Care Plan Goals: Continue any current medications, start Zithromax one pill every third day for pneumonia prophylaxis and return anytime if worsening or concerns. Keep your upcoming appointments as scheduled
--- NOTE | 2018-09-01 13:29 | CT ---
Head wo Cont CLINICAL HISTORY: Confusion, delirium COMPARISON: None TECHNIQUE: Transverse scans were obtained from the base of the skull through the vertex without IV contrast on a multislice, multidetector CT scanner. Auto dosage reduction and iterative reconstruction techniques employed. FINDINGS: There is a tiny lacunar type infarct in the right basal ganglia. There are some scattered ill-defined periventricular lucencies. There is no mass effect, hemorrhage, or extraaxial collection. The basal cisterns and sulci over the convexities are prominent. The ventricles are normal for age. 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
--- NOTE | 2018-09-01 13:34 | CR ---
CHEST: 2 view CLINICAL HISTORY:Dyspnea COMPARISON:2017 FINDINGS: Lungs are hyperaerated. No infiltrates are seen. There is some prominence of the pulmonary arteries. There are atherosclerotic changes in the aorta.. Heart size is normal. Impression: Hyperaeration Prominence to the proximal pulmonary arteries suggest pulmonary arterial hypertension.
== END 2018-09-01 14:05 | disposition home or self-care (01) ==
LOC: JP.ED 12:20
DX: R41.0 Disorientation, unspecified (principal); J43.9 Emphysema, unspecified; I10 Essential (primary) hypertension; I48.91 Unspecified atrial fibrillation; R23.3 Spontaneous ecchymoses; I25.10 Atherosclerotic heart disease of native coronary artery without angina pectoris; F41.9 Anxiety disorder, unspecified; Z79.01 Long term (current) use of anticoagulants; Z87.01 Personal history of pneumonia (recurrent); Z95.5 Presence of coronary angioplasty implant and graft; Z88.0 Allergy status to penicillin; Z88.5 Allergy status to narcotic agent; Z88.8 Allergy status to other drugs, medicaments and biological substances; Z79.82 Long term (current) use of aspirin; Z79.899 Other long term (current) drug therapy
CPT/HCPCS: 36415; 70450; 70450-26; 71046; 71046-26; 80053; 82803; 84443; 85025; 85610; 99285-25

== ENCOUNTER 2019-06-30 04:55 | Emergency (ER) | payer MEDICARE, BC ==
--- NOTE | 2019-06-30 05:57 | EDM.PDOC ---
ED HPI GENERAL MEDICAL PROBLEM - General Chief Complaint: General Stated Complaint: MEDICAL VIA [facility] Time Seen by Provider: 06/30/19 05:40 Source of Information: Reports: Patient, Family, Old Records, RN History Limitations: Reports: No Limitations - History of Present Illness INITIAL COMMENTS - FREE TEXT/NARRATIVE: 79 yo male brought in by his alexia due to behavioral concerns. He has Lewy Body Dementia and recently has been having hallucinations and tonight he went outside into the vehicle and wouldn't come back into the house. He likes to sleep all day while she is at work and then he is up much of the night. She works during the day and then isn't able to sleep at night because she is chasing him around. He has been in general more confused lately than before. The family is moving and this has him confused as well. Onset: Gradual Duration: Chronic, Getting Worse Location: Reports: Head (dementia with behavioral issues and hallucinations. ) Quality: Reports: Other (pain is not mentioned) Severity: Moderate Improves with: Reports: None Worsens with: Reports: Other (time) Context: Reports: Other (See HPI) Associated Symptoms: Reports: Confusion, Other (difficulty directing him at times) Treatments DOPE SPRAYER: Reports: Other (see below) (lorazepam was given twice alexia) - Related Data Allergies Allergy/AdvReac Type Severity Reaction Status Date / Time budesonide Allergy Difficulty Verified 06/30/19 06:30 Breathing zolpidem tartrate Allergy Other Verified 06/30/19 04:57 [From Ambien] codeine phosphate AdvReac Nausea and Verified 06/30/19 04:57 [From Tylenol-Codeine] Vomiting Penicillins AdvReac Swelling Verified 06/30/19 04:57 Home Meds: Home Meds Fish Oil/Borage/Flax/Om3,6,9 1 [[place] 3-6-9 Complex Softgel] 1 each PO DAILY [History] Aspirin 81 mg PO DAILY 09/19/15 [History] Cholecalciferol (Vitamin D3) [Vitamin D3] 2,000 unit PO DAILY 09/19/15 [History] Clopidogrel [Plavix] 75 mg PO DAILY 09/19/15 [History] amLODIPine [Norvasc] 5 mg PO DAILY 09/19/15 [History] atorvaSTATin [Lipitor] 80 mg PO DAILY 01/09/16 [History] Albuterol Sulfate [Proair Respiclick] 90 mcg IH Q4HR PRN 11/04/16 [History] Azithromycin [Zithromax] 500 mg PO ASDIRECTED 11/04/16 [History] Cyanocobalamin (Vitamin B-12) [Vitamin B-12] 1,000 mcg SL DAILY 11/04/16 [ History] Fluticasone/Salmeterol [Advair Diskus 500-50] 1 puff INH BID 11/04/16 [History] Ranibizumab [Lucentis] 0.5 mg Q3M 11/04/16 [History] Ranitidine [Zantac] 150 mg PO BID 11/04/16 [History] Acetaminophen [Tylenol Extra Strength] 500 mg PO Q6H PRN 09/01/18 [History] Albuterol/Ipratropium [DuoNeb 3.0-0.5 MG/3 ML] 3 ml INH ASDIRECTED PRN 09/01/18 [History] Fluticasone/Umeclidin/Vilanter [Trelegy Ellipta 100-62.5-25] 1 puff IN DAILY [History] Propranolol HCl [Propranolol] 10 mg PO DAILY 09/01/18 [History] Warfarin Sodium 5 mg PO ASDIRECTED 09/01/18 [History] predniSONE [Deltasone] 5 mg PO DAILY 09/01/18 [History] Ipratropium [Atrovent 0.03% Nasal [place]] 2 spray IN BID 06/30/19 [History] LORazepam [Lorazepam] 1 tab PO BEDTIME 06/30/19 [History] Latanoprost 1 drop PO BEDTIME 06/30/19 [History] Sennosides [Laxative] 1 tab PO DAILY 06/30/19 [History] busPIRone HCl [Buspirone HCl] 7.5 mg PO BID 06/30/19 [History] guaiFENesin [Mucinex] 600 mg PO BID 06/30/19 [History] lisinopriL [Lisinopril] 20 mg PO DAILY 06/30/19 [History] Past Medical History HEENT History: Reports: Cataract, Hard of Hearing, Impaired Vision, Macular Degeneration Cardiovascular History: Reports: Afib, CAD, High Cholesterol, Hypertension, SOB on Exertion, Stents Respiratory History: Reports: COPD, Pneumonia, Recurrent, SOB Other Respiratory History: Home oxygen Gastrointestinal History: Reports: Colon Polyp, Other (See Below) Other Gastrointestinal History: constipation Genitourinary History: Reports: BPH Musculoskeletal History: Reports: Fracture Neurological History: Reports: Other (See Below) Other Neuro History: dementia Psychiatric History: Reports: Anxiety Oncologic (Cancer) History: Reports: Basal Cell Carcinoma Other Oncologic History: skin Dermatologic History: Reports: Psoriasis - Infectious Disease History Infectious Disease History: Reports: Chicken Pox, Mumps, Rheumatic Fever - Past Surgical History HEENT Surgical History: Reports: None Cardiovascular Surgical History: Reports: Coronary Artery Stent Respiratory Surgical History: Reports: None GI Surgical History: Reports: None Male Surgical History: Reports: None Musculoskeletal Surgical History: Reports: Other (See Below) Other Musculoskeletal Surgeries/Procedures:: ankle surgery Dermatological Surgical History: Reports: None Social & Family History - Family History Respiratory: Reports: COPD - Tobacco Use Smoking Status *Q: Never Smoker - Caffeine Use Caffeine Use: Reports: Coffee - Recreational Drug Use Recreational Drug Use: No ED ROS GENERAL - Review of Systems Review Of Systems: See Below Constitutional: Reports: No Symptoms HEENT: Reports: No Symptoms Respiratory: Reports: No Symptoms Cardiovascular: Reports: No Symptoms Endocrine: Reports: No Symptoms GI/Abdominal: Reports: No Symptoms : Reports: Other (weak stream intermittently) Musculoskeletal: Reports: No Symptoms Skin: Reports: No Symptoms Neurological: Reports: Confusion Psychiatric: Reports: Agitation (at times), Anxiety (at times), Confusion ( progressive, worse lately), Hallucinations ED EXAM, GENERAL - Physical Exam Exam: See Below Exam Limited By: No Limitations General Appearance: Alert, WD/WN, No Apparent Distress Eye Exam: Bilateral Eye: Normal Inspection Ears: Normal External Exam, Normal Canal, Hearing Grossly Normal, Normal TMs, Other (bilateral hearing aids) Ear Exam: Bilateral Ear: Auricle Normal, Canal Normal Nose: Normal Inspection, No Blood Throat/Mouth: Normal Inspection, Normal Lips, Normal Oropharynx, Normal Voice, No Airway Compromise Head: Atraumatic, Normocephalic Neck: Normal Inspection Respiratory/Chest: No Respiratory Distress, Lungs Clear, Normal Breath Sounds, No Accessory Muscle Use Cardiovascular: Regular Rate, Rhythm, No Edema GI/Abdominal: Normal Bowel Sounds, Soft, Non-Tender, No Distention Back Exam: Normal Inspection. No: CVA Tenderness (R), CVA Tenderness (L) Extremities: Normal Inspection, Normal Range of Motion, Non-Tender, No Pedal Edema Neurological: Alert, CN II-XII Intact, No Motor/Sensory Deficits, Confused ( mildly confused, but is cooperative here ). No: Oriented Psychiatric: Normal Affect, Normal Mood Skin Exam: Warm, Dry, Intact, Normal Color, No Rash Course - Vital Signs Text/Narrative:: Working on sending to [facility] in [place]. They are currently reviewing his application and will be getting back to us. Last Recorded V/S: Last Vital Signs Temp 37.0 C 06/30/19 08:31 Pulse 90 06/30/19 08:31 Resp 16 06/30/19 08:31 BP 143/87 H 06/30/19 08:31 Pulse Ox 93 L 06/30/19 08:31 - Orders/Labs/Meds Labs: Laboratory Tests 06/30/19 06/30/19 06/30/19 Range/Units 05:34 05:58 05:58 WBC 9.4 (4.5-11.0) K/uL RBC 5.74 (4.30-5.90) M/uL Hgb 16.3 H (12.0-15.0) g/dL Hct 51.1 (40.0-54.0) % MCV 89 (80-98) fL MCH 28 (27-31) pg MCHC 32 (32-36) % Plt Count 200 (150-400) K/uL PT (9.5-12.0) sec INR (0.80-1.20) Sodium 140 (140-148) mmol/L Potassium 4.7 (3.6-5.2) mmol/L Chloride 103 (100-108) mmol/L Carbon Dioxide 30 (21-32) mmol/L Anion Gap 6.6 (5.0-14.0) mmol/L BUN 11 (7-18) mg/dL Creatinine 0.9 (0.8-1.3) mg/dL Est Cr Clr Drug Dosing 62.03 mL/min Estimated GFR (MDRD) > 60 (>60) Glucose 111 H (74-106) mg/dL Calcium 8.9 (8.5-10.1) mg/dL TSH, Ultra Sensitive 1.001 (0.358-3.740) uIU/mL Urine Color (YELLOW) Urine Appearance (CLEAR) Urine pH (5.0-8.0) Ur Specific [place] (1.008-1.030) Urine Protein (NEGATIVE) mg/dL Urine Glucose (UA) (NEGATIVE) mg/dL Urine Ketones (NEGATIVE) mg/dL Urine Occult Blood (NEGATIVE) Urine Nitrite (NEGATIVE) Urine Bilirubin (NEGATIVE) Urine Urobilinogen (0.2-1.0) EU/dL Ur Leukocyte Esterase (NEGATIVE) Urine RBC (0-5) Urine WBC (0-5) Ur Epithelial Cells Amorphous Sediment Urine Bacteria Urine Mucus 06/30/19 06/30/19 Range/Units 05:58 07:24 WBC (4.5-11.0) K/uL RBC (4.30-5.90) M/uL Hgb (12.0-15.0) g/dL Hct (40.0-54.0) % MCV (80-98) fL MCH (27-31) pg MCHC (32-36) % Plt Count (150-400) K/uL PT 17.9 H (9.5-12.0) sec INR 1.71 H (0.80-1.20) Sodium (140-148) mmol/L Potassium (3.6-5.2) mmol/L Chloride (100-108) mmol/L Carbon Dioxide (21-32) mmol/L Anion Gap (5.0-14.0) mmol/L BUN (7-18) mg/dL Creatinine (0.8-1.3) mg/dL Est Cr Clr Drug Dosing mL/min Estimated GFR (MDRD) (>60) Glucose (74-106) mg/dL Calcium (8.5-10.1) mg/dL TSH, Ultra Sensitive (0.358-3.740) uIU/mL Urine Color Yellow (YELLOW) Urine Appearance Clear (CLEAR) Urine pH 5.5 (5.0-8.0) Ur Specific [place] 1.025 (1.008-1.030) Urine Protein Negative (NEGATIVE) mg/dL Urine Glucose (UA) Negative (NEGATIVE) mg/dL Urine Ketones Negative (NEGATIVE) mg/dL Urine Occult Blood Small H (NEGATIVE) Urine Nitrite Negative (NEGATIVE) Urine Bilirubin Negative (NEGATIVE) Urine Urobilinogen 0.2 (0.2-1.0) EU/dL Ur Leukocyte Esterase Negative (NEGATIVE) Urine RBC 0-5 (0-5) Urine WBC 0-5 (0-5) Ur Epithelial Cells Not seen Amorphous Sediment Not seen Urine Bacteria Not seen Urine Mucus Moderate Meds: Medications Discontinued Medications Generic Name Dose Route Start Last Admin Trade Name Freq PRN Reason Stop Dose Admin Lorazepam 0.5 mg 06/30/19 08:10 06/30/19 08:17 Ativan PO 06/30/19 08:11 0.5 mg ONETIME ONE Administration Departure - Departure Time of Disposition: 12:05 Disposition: DC/Tfer to Other 70 Condition: Fair Clinical Impression: Lewy body dementia with behavioral disturbance - Discharge Information *PRESCRIPTION DRUG MONITORING PROGRAM REVIEWED*: Not Applicable *COPY OF PRESCRIPTION DRUG MONITORING REPORT IN PATIENT CHAITANYA: Not Applicable Referrals: PCP,None [Primary Care Provider] - Forms: ED Department Discharge Sepsis Event Note - Evaluation Sepsis Screening Result: No Definite Risk - Focused Exam Date Exam was Performed: 07/02/19 Time Exam was Performed: 19:52
[2019-06-30] MEDS ORDERED: LORazepam 0.5 MG Tab PO ONE (08:10)
[2019-06-30 08:32] VITALS: BP 143/87; PULSE 90
== END 2019-06-30 10:10 | disposition other institution (70) ==
LOC: JP.ED 04:55
DX: G31.83 Neurocognitive disorder with Lewy bodies (principal); F02.81 Dementia in other diseases classified elsewhere, unspecified severity, with behavioral disturbance; Z88.5 Allergy status to narcotic agent; Z88.8 Allergy status to other drugs, medicaments and biological substances; I48.91 Unspecified atrial fibrillation; I25.10 Atherosclerotic heart disease of native coronary artery without angina pectoris; E78.00 Pure hypercholesterolemia, unspecified; I10 Essential (primary) hypertension; J44.9 Chronic obstructive pulmonary disease, unspecified; F41.9 Anxiety disorder, unspecified; Z99.81 Dependence on supplemental oxygen; Z79.82 Long term (current) use of aspirin; Z79.899 Other long term (current) drug therapy; Z79.01 Long term (current) use of anticoagulants
CPT/HCPCS: 36415; 80048; 81001; 84443; 85027; 85610; 99285; A9270

== ENCOUNTER 2019-06-30 14:22 | Emergency (ER) | payer MEDICARE, BC ==
--- NOTE | 2019-06-30 14:51 | EDM.PDOC ---
<Bozena Madden - Last Filed: 06/30/19 14:56> ED HPI GENERAL MEDICAL PROBLEM - General Chief Complaint: Behavioral/Psych Stated Complaint: MEDICAL VIA [facility] Time Seen by Provider: 06/30/19 14:46 Source of Information: Reports: Patient History Limitations: Reports: No Limitations - History of Present Illness INITIAL COMMENTS - FREE TEXT/NARRATIVE: pt has a history of LEWy body dementia. He recently has been having hallucinations. He was seen last nite by Dr Reyes. He was to be placed at [facility] in [place] and they do not have a bed until tomorrow. He became agitated and decided to leav. His did take him home and later had to call Law Enforcement. Onset: Gradual Duration: Day(s): Location: Reports: Generalized, Other (pt has dementia) Associated Symptoms: Reports: No Other Symptoms - Related Data Allergies Allergy/AdvReac Type Severity Reaction Status Date / Time budesonide Allergy Difficulty Verified 06/30/19 06:30 Breathing zolpidem tartrate Allergy Other Verified 06/30/19 04:57 [From Ambien] codeine phosphate AdvReac Nausea and Verified 06/30/19 04:57 [From Tylenol-Codeine] Vomiting Penicillins AdvReac Swelling Verified 06/30/19 04:57 Home Meds: Home Meds Fish Oil/Borage/Flax/Om3,6,9 1 [[place] 3-6-9 Complex Softgel] 1 each PO DAILY [History] Aspirin 81 mg PO DAILY 09/19/15 [History] Cholecalciferol (Vitamin D3) [Vitamin D3] 2,000 unit PO DAILY 09/19/15 [History] Clopidogrel [Plavix] 75 mg PO DAILY 09/19/15 [History] amLODIPine [Norvasc] 5 mg PO DAILY 09/19/15 [History] atorvaSTATin [Lipitor] 80 mg PO DAILY 01/09/16 [History] Albuterol Sulfate [Proair Respiclick] 90 mcg IH Q4HR PRN 11/04/16 [History] Azithromycin [Zithromax] 500 mg PO ASDIRECTED 11/04/16 [History] Cyanocobalamin (Vitamin B-12) [Vitamin B-12] 1,000 mcg SL DAILY 11/04/16 [ History] Fluticasone/Salmeterol [Advair Diskus 500-50] 1 puff INH BID 11/04/16 [History] Ranibizumab [Lucentis] 0.5 mg Q3M 11/04/16 [History] Ranitidine [Zantac] 150 mg PO BID 11/04/16 [History] Acetaminophen [Tylenol Extra Strength] 500 mg PO Q6H PRN 09/01/18 [History] Albuterol/Ipratropium [DuoNeb 3.0-0.5 MG/3 ML] 3 ml INH ASDIRECTED PRN 09/01/18 [History] Fluticasone/Umeclidin/Vilanter [Trelegy Ellipta 100-62.5-25] 1 puff IN DAILY [History] Propranolol HCl [Propranolol] 10 mg PO DAILY 09/01/18 [History] Warfarin Sodium 5 mg PO ASDIRECTED 09/01/18 [History] predniSONE [Deltasone] 5 mg PO DAILY 09/01/18 [History] Ipratropium [Atrovent 0.03% Nasal [place]] 2 spray IN BID 06/30/19 [History] LORazepam [Lorazepam] 1 tab PO BEDTIME 06/30/19 [History] Latanoprost 1 drop PO BEDTIME 06/30/19 [History] Sennosides [Laxative] 1 tab PO DAILY 06/30/19 [History] busPIRone HCl [Buspirone HCl] 7.5 mg PO BID 06/30/19 [History] busPIRone [Buspar] 10 mg PO BID 06/30/19 [History] guaiFENesin [Mucinex] 600 mg PO BID 06/30/19 [History] lisinopriL [Lisinopril] 20 mg PO DAILY 06/30/19 [History] Past Medical History HEENT History: Reports: Cataract, Hard of Hearing, Impaired Vision, Macular Degeneration Cardiovascular History: Reports: Afib, CAD, High Cholesterol, Hypertension, SOB on Exertion, Stents Respiratory History: Reports: COPD, Pneumonia, Recurrent, SOB Other Respiratory History: Home oxygen Gastrointestinal History: Reports: Colon Polyp, Other (See Below) Other Gastrointestinal History: constipation Genitourinary History: Reports: BPH Musculoskeletal History: Reports: Fracture Neurological History: Reports: Other (See Below) Other Neuro History: dementia Psychiatric History: Reports: Anxiety Oncologic (Cancer) History: Reports: Basal Cell Carcinoma Other Oncologic History: skin Dermatologic History: Reports: Psoriasis - Infectious Disease History Infectious Disease History: Reports: Chicken Pox, Mumps, Rheumatic Fever - Past Surgical History HEENT Surgical History: Reports: None Cardiovascular Surgical History: Reports: Coronary Artery Stent Respiratory Surgical History: Reports: None GI Surgical History: Reports: None Male Surgical History: Reports: None Musculoskeletal Surgical History: Reports: Other (See Below) Other Musculoskeletal Surgeries/Procedures:: ankle surgery Dermatological Surgical History: Reports: None Social & Family History - Family History Respiratory: Reports: COPD - Tobacco Use Smoking Status *Q: Unknown Ever Smoked - Caffeine Use Caffeine Use: Reports: Coffee ED ROS GENERAL - Review of Systems Review Of Systems: See Below Constitutional: Reports: No Symptoms HEENT: Reports: No Symptoms Respiratory: Reports: No Symptoms Cardiovascular: Reports: No Symptoms Endocrine: Reports: No Symptoms GI/Abdominal: Reports: No Symptoms : Reports: No Symptoms Musculoskeletal: Reports: No Symptoms Skin: Reports: No Symptoms Neurological: Reports: Confusion, Other (pt has been hallcinating. ) Psychiatric: Reports: Agitation, Hallucinations - Physical Exam Exam: See Below Text/Narrative:: pt eloped nd did go home. Law Enforcement was called and he was brought back to the HOSP. [facility] does have a bd tomorrow. e Exam Limited By: No Limitations General Appearance: Alert, No Apparent Distress Ears: Normal TMs Nose: Normal Inspection Throat/Mouth: Normal Inspection Head Exam: Atraumatic Neck: Normal Inspection Respiratory/Chest: No Respiratory Distress Cardiovascular: Regular Rate, Rhythm GI/Abdominal: Soft, Non-Tender (Male) Exam: Deferred Rectal (Males) Exam: Deferred Neuro Exam (Abbreviated): Alert Psychiatric: Anxious, Other (pt does become agitated and he is hallcinating) Course - Vital Signs Last Recorded V/S: Last Vital Signs Temp 97.6 F 07/01/19 10:16 Pulse 92 07/01/19 10:16 Resp 16 07/01/19 10:16 BP 108/62 07/01/19 10:16 Pulse Ox 93 L 07/01/19 10:16 - Orders/Labs/Meds Meds: Medications Discontinued Medications Generic Name Dose Route Start Last Admin Trade Name Freq PRN Reason Stop Dose Admin Amlodipine Besylate 5 mg 06/30/19 14:59 06/30/19 15:17 Norvasc PO 06/30/19 15:00 5 mg ONETIME ONE Administration Atorvastatin Calcium 80 mg 06/30/19 14:59 06/30/19 15:18 Lipitor PO 06/30/19 15:00 80 mg ONETIME ONE Administration Buspirone HCl 10 mg 06/30/19 15:00 06/30/19 15:18 Buspar PO 06/30/19 15:01 10 mg ONETIME ONE Administration Clopidogrel Bisulfate 75 mg 06/30/19 14:56 06/30/19 15:18 Plavix PO 06/30/19 14:57 75 mg ONETIME ONE Administration Lisinopril 20 mg 06/30/19 15:00 06/30/19 15:17 Prinivil PO 06/30/19 15:01 20 mg ONETIME ONE Administration Lorazepam 1 mg 07/01/19 00:36 07/01/19 00:15 Ativan PO 07/01/19 00:37 1 mg ONETIME ONE Administration Prednisone 10 mg 06/30/19 15:01 06/30/19 15:18 Prednisone PO 06/30/19 15:02 10 mg ONETIME ONE Administration Propranolol HCl 10 mg 06/30/19 15:15 06/30/19 15:18 Inderal PO 06/30/19 15:16 10 mg ONETIME ONE Administration Warfarin Sodium 5 mg 06/30/19 14:58 06/30/19 15:18 Coumadin PO 06/30/19 14:59 5 mg ONETIME ONE Administration - Re-Assessments/Exams Free Text/Narrative Re-Assessment/Exam: 06/30/19 15:01 pt eloped but was brought back by law enforcement. He has not been combative. Departure - Departure Disposition: DC/Tfer to Psych Hosp/Unit [facility] Clinical Impression: Hallucinations, Lewy body dementia with behavioral disturbance - Discharge Information Referrals: PCP,None [Primary Care Provider] - Forms: ED Department Discharge Sepsis Event Note - Evaluation Sepsis Screening Result: No Definite Risk - Focused Exam Vital Signs: Vital Signs Temp Pulse Resp BP Pulse Ox 07/01/19 10:16 97.6 F 92 16 108/62 93 L Date Exam was Performed: 06/30/19 Time Exam was Performed: 14:56 <OfficerJw - Last Filed: 07/01/19 12:37> Departure - Departure Time of Disposition: 15:36 Condition: Poor Sepsis Event Note - Focused Exam Date Exam was Performed: 07/01/19 Time Exam was Performed: 12:35 - Assessment/Plan Plan: Assessment Acuity = acute Site and laterality = hallucinations Etiology = Lewy body dementia Manifestations = none Location of injury = Home Lab values = CBC, CMP, urinalysis, thyroid all within normal limits Plan Call discussed case with Dr. Colvin excepting physician at [facility] at 1150 he kindly accepted patient in transport will be transported via EMS ground This note was dictated using [employer] voice recognition software please call with any questions on syntax or grammar.
[2019-06-30] MEDS ORDERED: Clopidogrel 75 MG Tab PO ONE (14:56)
[2019-06-30] MEDS ORDERED: Propranolol 80 MG Cap.ER PO ONE (14:57)
[2019-06-30] MEDS ORDERED: Warfarin 5 MG Tab PO ONE (14:58)
[2019-06-30] MEDS ORDERED: amLODIPine 5 MG Tab PO ONE (14:59)
[2019-06-30] MEDS ORDERED: atorvaSTATin 20 MG Tab PO ONE (14:59)
[2019-06-30] MEDS ORDERED: Lisinopril 10 MG Tab PO ONE (15:00)
[2019-06-30] MEDS ORDERED: busPIRone 10 MG Tab PO ONE (15:00)
[2019-06-30] MEDS ORDERED: predniSONE 10 MG Tab PO ONE (15:01)
[2019-06-30] MEDS ORDERED: Propranolol 40 MG Tab PO ONE (15:15)
[2019-07-01] MEDS ORDERED: LORazepam 1 MG Tab PO ONE (00:36)
[2019-07-01 10:17] VITALS: BP 108/62; PULSE 92
== END 2019-07-01 18:09 ==
LOC: JP.ED 14:22
DX: G31.83 Neurocognitive disorder with Lewy bodies (principal); F02.81 Dementia in other diseases classified elsewhere, unspecified severity, with behavioral disturbance; I48.91 Unspecified atrial fibrillation; E78.00 Pure hypercholesterolemia, unspecified; I10 Essential (primary) hypertension; I25.10 Atherosclerotic heart disease of native coronary artery without angina pectoris; J44.9 Chronic obstructive pulmonary disease, unspecified; F41.9 Anxiety disorder, unspecified; Z99.81 Dependence on supplemental oxygen; Z79.82 Long term (current) use of aspirin; Z79.02 Long term (current) use of antithrombotics/antiplatelets; Z79.899 Other long term (current) drug therapy; Z79.01 Long term (current) use of anticoagulants; Z88.8 Allergy status to other drugs, medicaments and biological substances; Z88.5 Allergy status to narcotic agent; Z88.0 Allergy status to penicillin
CPT/HCPCS: 99285; A9270

== ENCOUNTER 2019-07-22 09:07 | Inpatient (IN) | payer MEDICARE, BC ==
--- NOTE | 2019-07-22 10:29 | CR ---
CHEST: Portable 07/22/2019 at 10:18 AM CLINICAL HISTORY:Right lower chest pain COMPARISON:August 2018 FINDINGS: Heart size and pulmonary vascularity are normal. There is a 6 x 7 cm masslike focus in the right costophrenic angle. There is also diffuse right lower lobe infiltrate. Left lung is clear. There are atherosclerotic changes in the aorta. IMPRESSION: Right lower lobe masslike density. The there is is neoplasm tibial excluded. This could feasibly represent a rounded pneumonia but this is felt less likely. Superimposed diffuse right lower lobe pneumonia.
[2019-07-22] MEDS ORDERED: Sodium Chloride 0.9% 1,000 ML IV SCH (10:45)
--- NOTE | 2019-07-22 11:36 | CT ---
Head wo Cont CLINICAL HISTORY: Increasing confusion COMPARISON: August 2018 TECHNIQUE: Transverse scans were obtained from the base of the skull through the vertex without IV contrast on a multislice, multidetector CT scanner. Auto dosage reduction and iterative reconstruction techniques employed. FINDINGS: No focal abnormal parenchymal densities are identified. There is no mass effect, hemorrhage, or extraaxial collection. There is some scattered slightly asymmetric periventricular and subcortical lucency The basal cisterns and sulci over the convexities are prominent. The ventricles are normal for age. IMPRESSION: Age-related atrophy Chronic ischemic microvascular changes No significant interval change since 2019
[2019-07-22] MEDS ORDERED: cefTRIAXone 1 GM in Sodium Chloride 0.9% 50 ML IV ONE (11:44)
--- NOTE | 2019-07-22 11:48 | CT ---
Chest wo Cont CLINICAL HISTORY: Right lung mass, infiltrate TECHNIQUE: Transverse scans were obtained from the thoracic inlet to the lung bases without contrast. Auto dosage reduction and iterative reconstruction techniques employed. COMPARISONS: 2016 FINDINGS: Lungs are generally emphysematous. There is a diffuse right lower lobe pneumonic infiltrate with some patchy areas of scattered consolidation. There is a 7.7 x 5.7 x 6.3 cm pleural-based rounded solid mass posterior laterally. There is diffuse cylindrical bronchiectasis. There are a few scattered small lymph nodes in the mediastinum. The no definite hilar adenopathy is seen but study is somewhat limited due to the lack of IV contrast. There are no pleural effusions. Patient has moderate coronary artery calcifications. 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 Diffuse right lower lobe pneumonia Underlying COPD
--- NOTE | 2019-07-22 11:50 | EDM.PDOC ---
ED HPI GENERAL MEDICAL PROBLEM - General Chief Complaint: Abdominal Pain Stated Complaint: ABD PAIN Time Seen by Provider: 07/22/19 09:10 Source of Information: Reports: Patient History Limitations: Reports: No Limitations - History of Present Illness INITIAL COMMENTS - FREE TEXT/NARRATIVE: pt arrived with ahistyory of a low grade temp, chest congestion and cough. He is having discomfort in the area just below the diaphram. he has no vomiting . Onset: Gradual, Other (over the last 2 days, ) Duration: Hour(s): Location: Reports: Chest, Abdomen, Other (hurts some with deep breathing. ) Associated Symptoms: Reports: Chest Pain, Cough, Shortness of Breath Right Lower Abdomen Pain Score (Numeric/FACES): 5 - Related Data Allergies Allergy/AdvReac Type Severity Reaction Status Date / Time budesonide Allergy Difficulty Verified 07/22/19 09:21 Breathing zolpidem tartrate Allergy Other Verified 07/22/19 09:21 [From Ambien] codeine phosphate AdvReac Nausea and Verified 07/22/19 09:21 [From Tylenol-Codeine] Vomiting Penicillins AdvReac Swelling Verified 07/22/19 09:21 Home Meds: Home Meds Aspirin 81 mg PO DAILY 09/19/15 [History] Cholecalciferol (Vitamin D3) [Vitamin D3] 2,000 unit PO DAILY 09/19/15 [History] Clopidogrel [Plavix] 75 mg PO DAILY 09/19/15 [History] amLODIPine [Norvasc] 5 mg PO DAILY 09/19/15 [History] atorvaSTATin [Lipitor] 80 mg PO DAILY 01/09/16 [History] Albuterol Sulfate [Proair Respiclick] 90 mcg IH Q4HR PRN 11/04/16 [History] Azithromycin [Zithromax] 500 mg PO ASDIRECTED 11/04/16 [History] Cyanocobalamin (Vitamin B-12) [Vitamin B-12] 1,000 mcg SL DAILY 11/04/16 [ History] Acetaminophen [Tylenol Extra Strength] 500 mg PO Q6H PRN 09/01/18 [History] Fluticasone/Umeclidin/Vilanter [Trelegy Ellipta 100-62.5-25] 1 puff IN DAILY [History] Warfarin Sodium 5 mg PO ASDIRECTED 09/01/18 [History] predniSONE [Deltasone] 5 mg PO DAILY 09/01/18 [History] Ipratropium [Atrovent 0.03% Nasal [place]] 2 spray IN BID 06/30/19 [History] LORazepam [Lorazepam] 1 tab PO BID 06/30/19 [History] Latanoprost 1 drop PO BEDTIME 06/30/19 [History] Sennosides [Laxative] 8.6 mg PO DAILY 06/30/19 [History] guaiFENesin [Mucinex] 600 mg PO BID 06/30/19 [History] lisinopriL [Lisinopril] 20 mg PO DAILY 06/30/19 [History] Famotidine 20 mg PO BID 07/22/19 [History] QUEtiapine [SEROquel] 25 mg PO BID 07/22/19 [History] Venlafaxine [Effexor XR 24 Hr] 37.5 mg PO BEDTIME 07/22/19 [History] Past Medical History HEENT History: Reports: Cataract, Hard of Hearing, Impaired Vision, Macular Degeneration Cardiovascular History: Reports: Afib, CAD, High Cholesterol, Hypertension, SOB on Exertion, Stents Respiratory History: Reports: COPD, Pneumonia, Recurrent, SOB Other Respiratory History: Home oxygen 2L Gastrointestinal History: Reports: Colon Polyp, Other (See Below) Other Gastrointestinal History: constipation Genitourinary History: Reports: BPH Musculoskeletal History: Reports: Fracture Neurological History: Reports: Other (See Below) Other Neuro History: dementia Psychiatric History: Reports: Anxiety Hematologic History: Reports: Anticoagulation Therapy Oncologic (Cancer) History: Reports: Basal Cell Carcinoma Other Oncologic History: skin Dermatologic History: Reports: Psoriasis - Infectious Disease History Infectious Disease History: Reports: Chicken Pox, Mumps, Rheumatic Fever - Past Surgical History Head Surgeries/Procedures: Reports: None HEENT Surgical History: Reports: None Cardiovascular Surgical History: Reports: Coronary Artery Stent Respiratory Surgical History: Reports: None GI Surgical History: Reports: None Male Surgical History: Reports: None Neurological Surgical History: Reports: None Musculoskeletal Surgical History: Reports: Other (See Below) Other Musculoskeletal Surgeries/Procedures:: ankle surgery Oncologic Surgical History: Reports: None Dermatological Surgical History: Reports: None Social & Family History - Family History Respiratory: Reports: COPD - Tobacco Use Smoking Status *Q: Former Smoker Used Tobacco, but Quit: Yes Month/Year Tobacco Last Used: 1988 Second Hand Smoke Exposure: No - Caffeine Use Caffeine Use: Reports: None - Recreational Drug Use Recreational Drug Use: No ED ROS GENERAL - Review of Systems Review Of Systems: See Below Constitutional: Reports: Fever, Chills, Malaise HEENT: Reports: No Symptoms Respiratory: Reports: Shortness of Breath, Cough, Sputum Cardiovascular: Reports: No Symptoms Endocrine: Reports: No Symptoms GI/Abdominal: Reports: Other (pain in upper rt abdoman. ) : Reports: No Symptoms Musculoskeletal: Reports: No Symptoms Skin: Reports: No Symptoms ED EXAM, GI/ABD - Physical Exam Exam: See Below Text/Narrative:: pt arrived with pain in the rt upper abdoman and pain in the rt lower chest. Exam Limited By: No Limitations General Appearance: Alert, Anxious, Mild Distress Ears: Normal TMs Throat/Mouth: Normal Inspection Head: Atraumatic Neck: Normal Inspection Respiratory/Chest: Other (pt has poor air exchange at the rt lower lung ortiz, He has rhonchi and congestion in the upper lung ortiz, ) Cardiovascular: Regular Rate, Rhythm GI/Abdominal Exam: Soft, Other (he does not have alot of tenderness in the abdoman. ) (Male) Exam: Deferred Rectal (Males) Exam: Deferred Back Exam: Normal Inspection Extremities: Normal Inspection Neurological: Alert, Oriented, Normal Cognition Course - Vital Signs Last Recorded V/S: Last Vital Signs Temp 36.9 C 07/22/19 09:14 Pulse 127 H 07/22/19 11:03 Resp 30 H 07/22/19 11:03 BP 127/97 H 07/22/19 11:03 Pulse Ox 93 L 07/22/19 11:03 - Orders/Labs/Meds Orders: Active Orders 24 hr Category Date Time Status Chest wo Cont [CT] Stat Exams 07/22/19 10:29 Taken CULTURE BLOOD [BC] Urgent Lab 07/22/19 10:30 Received CULTURE BLOOD [BC] Urgent Lab 07/22/19 10:40 Received UA W/MICROSCOPIC [URIN] Urgent Lab 07/22/19 09:35 Ordered Sodium Chloride 0.9% [Normal Saline] 1,000 ml Med 07/22/19 10:45 Active IV ASDIRECTED cefTRIAXone [Rocephin] 1 gm Med 07/22/19 11:44 Ordered Sodium Chloride 0.9% [Normal Saline] 50 ml IV ONETIME Blood Culture x2 Reflex Set [OM.PC] Urgent Oth 07/22/19 10:26 Ordered Medication Orders Sodium Chloride (Normal Saline) 1,000 mls @ 999 mls/hr IV ASDIRECTED ALON Last Admin: 07/22/19 10:40 Dose: 999 mls/hr Ceftriaxone Sodium 1 gm/ (Sodium Chloride) 50 mls @ 100 mls/hr IV ONETIME ONE Stop: 07/22/19 12:13 Labs: Laboratory Tests 07/22/19 07/22/19 07/22/19 Range/Units 09:51 09:51 09:51 WBC 14.2 H (4.5-11.0) K/uL RBC 4.88 (4.30-5.90) M/uL Hgb 14.1 D (12.0-15.0) g/dL Hct 44.0 (40.0-54.0) % MCV 90 (80-98) fL MCH 29 (27-31) pg MCHC 32 (32-36) % Plt Count 186 (150-400) K/uL Neut % (Auto) 83 H (36-66) % Lymph % (Auto) 4 L (24-44) % [place] % (Auto) 12 H (2-6) % Eos % (Auto) 0 L (2-4) % Baso % (Auto) 0 (0-1) % PT 55.2 H (9.5-12.0) sec INR 5.64 H* (0.80-1.20) Sodium 142 (140-148) mmol/L Potassium 3.9 (3.6-5.2) mmol/L Chloride 102 (100-108) mmol/L Carbon Dioxide 32 (21-32) mmol/L Anion Gap 7.6 (5.0-14.0) mmol/L BUN 26 H D (7-18) mg/dL Creatinine 1.0 (0.8-1.3) mg/dL Est Cr Clr Drug Dosing 55.83 mL/min Estimated GFR (MDRD) > 60 (>60) Glucose 110 H (74-106) mg/dL Lactic Acid (0.4-2.0) mmol/L Calcium 8.5 (8.5-10.1) mg/dL Total Bilirubin 2.2 H (0.2-1.0) mg/dL AST 25 (15-37) U/L ALT 53 D (12-78) U/L Alkaline Phosphatase 77 (46-116) U/L Total Protein 6.4 (6.4-8.2) g/dL Albumin 3.5 (3.4-5.0) g/dL Globulin 2.9 (2.3-3.5) g/dL Albumin/Globulin Ratio 1.2 (1.2-2.2) Lipase (73-393) U/L 07/22/19 07/22/19 Range/Units 09:57 10:26 WBC (4.5-11.0) K/uL RBC (4.30-5.90) M/uL Hgb (12.0-15.0) g/dL Hct (40.0-54.0) % MCV (80-98) fL MCH (27-31) pg MCHC (32-36) % Plt Count (150-400) K/uL Neut % (Auto) (36-66) % Lymph % (Auto) (24-44) % [place] % (Auto) (2-6) % Eos % (Auto) (2-4) % Baso % (Auto) (0-1) % PT (9.5-12.0) sec INR (0.80-1.20) Sodium (140-148) mmol/L Potassium (3.6-5.2) mmol/L Chloride (100-108) mmol/L Carbon Dioxide (21-32) mmol/L Anion Gap (5.0-14.0) mmol/L BUN (7-18) mg/dL Creatinine (0.8-1.3) mg/dL Est Cr Clr Drug Dosing mL/min Estimated GFR (MDRD) (>60) Glucose (74-106) mg/dL Lactic Acid 1.1 (0.4-2.0) mmol/L Calcium (8.5-10.1) mg/dL Total Bilirubin (0.2-1.0) mg/dL AST (15-37) U/L ALT (12-78) U/L Alkaline Phosphatase (46-116) U/L Total Protein (6.4-8.2) g/dL Albumin (3.4-5.0) g/dL Globulin (2.3-3.5) g/dL Albumin/Globulin Ratio (1.2-2.2) Lipase 57 L (73-393) U/L Meds: Medications Generic Name Dose Route Start Last Admin Trade Name Bowen PRN Reason Stop Dose Admin Sodium Chloride 1,000 mls @ 999 mls/hr 07/22/19 10:45 07/22/19 10:40 Normal Saline IV 999 mls/hr ASDIRECTED ALON Administration Ceftriaxone Sodium 1 gm/ 50 mls @ 100 mls/hr 07/22/19 11:44 Sodium Chloride IV 07/22/19 12:13 ONETIME ONE - Re-Assessments/Exams Free Text/Narrative Re-Assessment/Exam: 07/22/19 11:51 pt had a cat scan of the head because of his periods of confusion, He had a chest xray and cat scan of the chest which shows a large mass in the lower lung field. He clearly has a pneumonia around it. His wbc is 14,000. He has a normal temp but earlier today he had a temp slightly over 100. Departure - Departure Time of Disposition: 11:52 Disposition: Admitted As Inpatient 66 Condition: Fair Clinical Impression: Right lower lobe pneumonia, Mass of right lung, Dehydration, Elevated INR - Discharge Information Referrals: Matty Lafleur MD [Primary Care Provider] - Care Plan Goals: admit to Dr Mcleod Sepsis Event Note - Evaluation Sepsis Screening Result: No Definite Risk - Focused Exam Vital Signs: Vital Signs Temp Pulse Resp BP Pulse Ox 07/22/19 11:03 127 H 30 H 127/97 H 93 L 07/22/19 10:34 125 H 25 H 120/81 95 07/22/19 09:34 121 H 22 H 101/64 95 07/22/19 09:14 36.9 C 121 H 121/97 H 96 07/22/19 09:10 36.9 C 121 H 27 H 121/97 H 96 Date Exam was Performed: 07/22/19 Time Exam was Performed: 11:45 - My Orders Last 24 Hours: My Active Orders 07/22/19 09:35 UA W/MICROSCOPIC [URIN] Urgent 07/22/19 10:26 Blood Culture x2 Reflex Set [OM.PC] Urgent 07/22/19 10:29 Chest wo Cont [CT] Stat 07/22/19 10:30 CULTURE BLOOD [BC] Urgent 07/22/19 10:40 CULTURE BLOOD [BC] Urgent 07/22/19 10:45 Sodium Chloride 0.9% [Normal Saline] 1,000 ml IV ASDIRECTED 07/22/19 11:44 cefTRIAXone [Rocephin] 1 gm Sodium Chloride 0.9% [Normal Saline] 50 ml IV ONETIME - Assessment/Plan Last 24 Hours: My Active Orders 07/22/19 09:35 UA W/MICROSCOPIC [URIN] Urgent 07/22/19 10:26 Blood Culture x2 Reflex Set [OM.PC] Urgent 07/22/19 10:29 Chest wo Cont [CT] Stat 07/22/19 10:30 CULTURE BLOOD [BC] Urgent 07/22/19 10:40 CULTURE BLOOD [BC] Urgent 07/22/19 10:45 Sodium Chloride 0.9% [Normal Saline] 1,000 ml IV ASDIRECTED 07/22/19 11:44 cefTRIAXone [Rocephin] 1 gm Sodium Chloride 0.9% [Normal Saline] 50 ml IV ONETIME
[2019-07-22] MEDS ORDERED: HYDROmorphone 0.5 MG/0.5 ML Syringe IVPUSH ONE (11:58)
--- NOTE | 2019-07-22 13:03 | PCM.HP.2 ---
H&P History of Present Illness - General Date of Service: 07/22/19 Admit Problem/Dx: Admission Diagnosis/Problem Admission Diagnosis/Problem Pneumonia Source of Information: Family, Provider. No: Patient History Limitations: Reports: Altered Mental Status - History of Present Illness Initial Comments - Free Text/Narative: CC: my side is hurting HPI: Guy presents presents to the emergency room today with right lower chest/ upper abdominal pain. Because of his dementia it is very difficult to gather any reliable history from the patient so history is gathered from emergency room personnel and his . He reports that he has been having pain in his right side off and on but is not sure for how long. The staff at his memory care unit report that it is been more intense over the past 24 hours and that he had a low-grade fever 100.4 this morning. He says that he feels short of breath but he is not sure how long that is been going on. He says he has been coughing for 10 years. He has trouble describing the pain but does say that it is moderate in severity. He thinks Tylenol helps the pain a little bit and that coughing makes the pain worse. He does report some nausea but thinks that his bowels have been moving normally. He thinks that he is going to [facility] for a test today but he is not sure what test. He tells me that he recently got but his is at the bedside. Work-up in the emergency room revealed mild leukocytosis. Other labs were fairly unremarkable. He is mildly tachycardic. Chest x-ray showed a right lung pneumonia and a fairly large mass in the right lower chest. This was confirmed with a chest CT and there is concern for a pleural-based malignancy on the right side. Head CT showed mild chronic changes. He will be admitted for further management of the pneumonia. Right Lower Abdomen Pain Score (Numeric/FACES): 5 - Related Data Allergies/Adverse Reactions: Allergies Allergy/AdvReac Type Severity Reaction Status Date / Time budesonide Allergy Difficulty Verified 07/22/19 09:21 Breathing zolpidem tartrate Allergy Other Verified 07/22/19 09:21 [From Ambien] codeine phosphate AdvReac Nausea and Verified 07/22/19 09:21 [From Tylenol-Codeine] Vomiting Penicillins AdvReac Swelling Verified 07/22/19 09:21 Home Medications: Home Meds Aspirin 81 mg PO DAILY 09/19/15 [History] Cholecalciferol (Vitamin D3) [Vitamin D3] 2,000 unit PO DAILY 09/19/15 [History] Clopidogrel [Plavix] 75 mg PO DAILY 09/19/15 [History] amLODIPine [Norvasc] 5 mg PO DAILY 09/19/15 [History] atorvaSTATin [Lipitor] 80 mg PO DAILY 01/09/16 [History] Albuterol Sulfate [Proair Respiclick] 90 mcg IH Q4HR PRN 11/04/16 [History] Azithromycin [Zithromax] 500 mg PO ASDIRECTED 11/04/16 [History] Cyanocobalamin (Vitamin B-12) [Vitamin B-12] 1,000 mcg SL DAILY 11/04/16 [ History] Acetaminophen [Tylenol Extra Strength] 500 mg PO Q6H PRN 09/01/18 [History] Fluticasone/Umeclidin/Vilanter [Trelegy Ellipta 100-62.5-25] 1 puff IN DAILY [History] Warfarin Sodium 5 mg PO ASDIRECTED 09/01/18 [History] predniSONE [Deltasone] 5 mg PO DAILY 09/01/18 [History] Ipratropium [Atrovent 0.03% Nasal [place]] 2 spray IN BID 06/30/19 [History] LORazepam [Lorazepam] 1 tab PO BID 06/30/19 [History] Latanoprost 1 drop PO BEDTIME 06/30/19 [History] Sennosides [Laxative] 8.6 mg PO DAILY 06/30/19 [History] guaiFENesin [Mucinex] 600 mg PO BID 06/30/19 [History] lisinopriL [Lisinopril] 20 mg PO DAILY 06/30/19 [History] Famotidine 20 mg PO BID 07/22/19 [History] QUEtiapine [SEROquel] 25 mg PO BID 07/22/19 [History] Venlafaxine [Effexor XR 24 Hr] 37.5 mg PO BEDTIME 07/22/19 [History] Past Medical History HEENT History: Reports: Cataract, Hard of Hearing, Impaired Vision, Macular Degeneration Cardiovascular History: Reports: Afib, CAD, High Cholesterol, Hypertension, SOB on Exertion, Stents Respiratory History: Reports: COPD, Pneumonia, Recurrent, SOB Other Respiratory History: Home oxygen 2L Gastrointestinal History: Reports: Colon Polyp, Other (See Below) Other Gastrointestinal History: constipation Genitourinary History: Reports: BPH Musculoskeletal History: Reports: Fracture Neurological History: Reports: Other (See Below) Other Neuro History: dementia Psychiatric History: Reports: Anxiety Hematologic History: Reports: Anticoagulation Therapy Oncologic (Cancer) History: Reports: Basal Cell Carcinoma Other Oncologic History: skin Dermatologic History: Reports: Psoriasis - Infectious Disease History Infectious Disease History: Reports: Chicken Pox, Mumps, Rheumatic Fever - Past Surgical History Head Surgeries/Procedures: Reports: None HEENT Surgical History: Reports: None Cardiovascular Surgical History: Reports: Coronary Artery Stent Respiratory Surgical History: Reports: None GI Surgical History: Reports: None Male Surgical History: Reports: None Neurological Surgical History: Reports: None Musculoskeletal Surgical History: Reports: Other (See Below) Other Musculoskeletal Surgeries/Procedures:: ankle surgery Oncologic Surgical History: Reports: None Dermatological Surgical History: Reports: None Social & Family History - Family History Respiratory: Reports: COPD - Tobacco Use Smoking Status *Q: Former Smoker Used Tobacco, but Quit: Yes Month/Year Tobacco Last Used: 1988 Second Hand Smoke Exposure: No - Caffeine Use Caffeine Use: Reports: None - Recreational Drug Use Recreational Drug Use: No H&P Review of Systems - Review of Systems: Review Of Systems: Unable To Obtain Reason Not Obtained: advanced dementia, history not reliable Exam - Exam Exam: See Below - Vital Signs Vital Signs: Last Vital Signs Temp 36.9 C 07/22/19 09:14 Pulse 127 H 07/22/19 11:03 Resp 30 H 07/22/19 11:03 BP 127/97 H 07/22/19 11:03 Pulse Ox 93 L 07/22/19 11:03 Weight: 70.307 kg - Exam Quality Assessment: Supplemental Oxygen General: Alert, Cooperative. No: Oriented, Mild Distress HEENT: Conjunctiva Clear. No: Mucosa Moist & [place] (dry), Scleral Icterus Neck: Supple, Trachea Midline. No: Lymphadenopathy Lungs: Normal Respiratory Effort, Decreased Breath Sounds (right lower lung), Crackles (right lower and mid lung ) Cardiovascular: Regular Rhythm, Tachycardia GI/Abdominal Exam: Normal Bowel Sounds, Soft, Non-Tender, No Distention, No Mass Back Exam: Normal Inspection, Full Range of Motion Extremities: No Pedal Edema. No: Increased Warmth Peripheral Pulses: 2+: Dorsalis Pedis (L), Dorsalis Pedis (R) Skin: Warm, Dry, Ecchymosis (lower back in the midline ) Neuro Extensive - Mental Status: Alert, Nl Response to Commands. No: Oriented x3 Neuro Extensive - Motor, Sensory, Reflexes: Tremor. No: Dysarthria, Abnormal Motor Psychiatric: Alert, Normal Affect. No: Agitated - Patient Data Lab Results Last 24 hrs: Laboratory Results - last 24 hr 07/22/19 07/22/19 07/22/19 Range/Units 09:51 09:51 09:51 WBC 14.2 H (4.5-11.0) K/uL RBC 4.88 (4.30-5.90) M/uL Hgb 14.1 D (12.0-15.0) g/dL Hct 44.0 (40.0-54.0) % MCV 90 (80-98) fL MCH 29 (27-31) pg MCHC 32 (32-36) % Plt Count 186 (150-400) K/uL Neut % (Auto) 83 H (36-66) % Lymph % (Auto) 4 L (24-44) % [place] % (Auto) 12 H (2-6) % Eos % (Auto) 0 L (2-4) % Baso % (Auto) 0 (0-1) % PT 55.2 H (9.5-12.0) sec INR 5.64 H* (0.80-1.20) Sodium 142 (140-148) mmol/L Potassium 3.9 (3.6-5.2) mmol/L Chloride 102 (100-108) mmol/L Carbon Dioxide 32 (21-32) mmol/L Anion Gap 7.6 (5.0-14.0) mmol/L BUN 26 H D (7-18) mg/dL Creatinine 1.0 (0.8-1.3) mg/dL Est Cr Clr Drug Dosing 55.83 mL/min Estimated GFR (MDRD) > 60 (>60) Glucose 110 H (74-106) mg/dL Lactic Acid (0.4-2.0) mmol/L Calcium 8.5 (8.5-10.1) mg/dL Total Bilirubin 2.2 H (0.2-1.0) mg/dL AST 25 (15-37) U/L ALT 53 D (12-78) U/L Alkaline Phosphatase 77 (46-116) U/L Total Protein 6.4 (6.4-8.2) g/dL Albumin 3.5 (3.4-5.0) g/dL Globulin 2.9 (2.3-3.5) g/dL Albumin/Globulin Ratio 1.2 (1.2-2.2) Lipase (73-393) U/L Urine Color (YELLOW) Urine Appearance (CLEAR) Urine pH (5.0-8.0) Ur Specific [place] (1.008-1.030) Urine Protein (NEGATIVE) mg/dL Urine Glucose (UA) (NEGATIVE) mg/dL Urine Ketones (NEGATIVE) mg/dL Urine Occult Blood (NEGATIVE) Urine Nitrite (NEGATIVE) Urine Bilirubin (NEGATIVE) Urine Urobilinogen (0.2-1.0) EU/dL Ur Leukocyte Esterase (NEGATIVE) Urine RBC (0-5) Urine WBC (0-5) Ur Epithelial Cells Amorphous Sediment Urine Bacteria Urine Mucus 07/22/19 07/22/19 07/22/19 Range/Units 09:57 10:26 11:57 WBC (4.5-11.0) K/uL RBC (4.30-5.90) M/uL Hgb (12.0-15.0) g/dL Hct (40.0-54.0) % MCV (80-98) fL MCH (27-31) pg MCHC (32-36) % Plt Count (150-400) K/uL Neut % (Auto) (36-66) % Lymph % (Auto) (24-44) % [place] % (Auto) (2-6) % Eos % (Auto) (2-4) % Baso % (Auto) (0-1) % PT (9.5-12.0) sec INR (0.80-1.20) Sodium (140-148) mmol/L Potassium (3.6-5.2) mmol/L Chloride (100-108) mmol/L Carbon Dioxide (21-32) mmol/L Anion Gap (5.0-14.0) mmol/L BUN (7-18) mg/dL Creatinine (0.8-1.3) mg/dL Est Cr Clr Drug Dosing mL/min Estimated GFR (MDRD) (>60) Glucose (74-106) mg/dL Lactic Acid 1.1 (0.4-2.0) mmol/L Calcium (8.5-10.1) mg/dL Total Bilirubin (0.2-1.0) mg/dL AST (15-37) U/L ALT (12-78) U/L Alkaline Phosphatase (46-116) U/L Total Protein (6.4-8.2) g/dL Albumin (3.4-5.0) g/dL Globulin (2.3-3.5) g/dL Albumin/Globulin Ratio (1.2-2.2) Lipase 57 L (73-393) U/L Urine Color Yellow (YELLOW) Urine Appearance Slightly cloudy A (CLEAR) Urine pH 5.5 (5.0-8.0) Ur Specific [place] >= 1.030 (1.008-1.030) Urine Protein 30 H (NEGATIVE) mg/dL Urine Glucose (UA) 100 H (NEGATIVE) mg/dL Urine Ketones Negative (NEGATIVE) mg/dL Urine Occult Blood Small H (NEGATIVE) Urine Nitrite Negative (NEGATIVE) Urine Bilirubin Small H (NEGATIVE) Urine Urobilinogen 1.0 (0.2-1.0) EU/dL Ur Leukocyte Esterase Negative (NEGATIVE) Urine RBC 5-10 H (0-5) Urine WBC 0-5 (0-5) Ur Epithelial Cells Moderate Amorphous Sediment Not seen Urine Bacteria Few Urine Mucus Many Result Diagrams: 07/22/19 09:51 07/22/19 09:51 Imaging Impressions Last 24 hrs: CXR-images personally reviewed and compared to August 2018-right lower lobe pneumonia surrounding a 7 cm rounded mass in the right lower chest. heart size is normal. No rib fractures. CT chest-rounded mass in the right lower chest with superimposed pneumonia CT head-chronic age related changes. no acute findings Sepsis Event Note - Evaluation Sepsis Screening Result: No Definite Risk - Focused Exam Vital Signs: Vital Signs Temp Pulse Resp BP Pulse Ox 07/22/19 11:03 127 H 30 H 127/97 H 93 L 07/22/19 10:34 125 H 25 H 120/81 95 07/22/19 09:34 121 H 22 H 101/64 95 07/22/19 09:14 36.9 C 121 H 121/97 H 96 07/22/19 09:10 36.9 C 121 H 27 H 121/97 H 96 Date Exam was Performed: 07/22/19 Time Exam was Performed: 14:00 *Q Meaningful Use (ADM) - VTE *Q VTE Pharmacological Contraindications *Q: High INR Value - VTE Risk Assess *Q Each Risk Factor Represents 1 Point: Serious lung disease including pneumonia, Abnormal Pulmonary Function (COPD) Total Score 1 Point Risk Factors: 2 Each Risk Factor Represents 2 Points: Malignancy (present or previous) Total Score 2 Point Risk Factors: 2 Each Risk Factor Represents 3 Points: Age 75 Years or Greater Total Score 3 Point Risk Factors: 3 Each Risk Factor Represents 5 Points: None Total Score 5 Point Risk Factors: 0 Venous Thromboembolism Risk Factor Score *Q: 7 - Problem List (1) Right lower lobe pneumonia SNOMED Code(s): 539226774 ICD Code: J18.9 - PNEUMONIA, UNSPECIFIED ORGANISM Status: Acute Current Visit: Yes Qualifiers: Pneumonia type: due to unspecified organism Qualified Code(s): J18.9 - Pneumonia, unspecified organism (2) Mass of right lung SNOMED Code(s): 346076770 ICD Code: R91.8 - OTHER NONSPECIFIC ABNORMAL FINDING OF LUNG FIELD Status: Acute Current Visit: Yes (3) Acute and chronic respiratory failure with hypoxia SNOMED Code(s): 64858548, 729809543 ICD Code: J96.21 - ACUTE AND CHRONIC RESPIRATORY FAILURE WITH HYPOXIA Status: Acute Current Visit: Yes (4) Lewy body dementia with behavioral disturbance SNOMED Code(s): 894888986435741 ICD Code: G31.83 - DEMENTIA WITH LEWY BODIES; F02.81 - DEMENTIA IN OTH DISEASES CLASSD ELSWHR W BEHAVIORAL DISTURB Status: Chronic Current Visit: No (5) COPD (chronic obstructive pulmonary disease) SNOMED Code(s): 90385812 ICD Code: J44.9 - CHRONIC OBSTRUCTIVE PULMONARY DISEASE, UNSPECIFIED Status : Chronic Current Visit: No Qualifiers: COPD type: emphysema Emphysema type: unspecified Qualified Code(s): J43.9 - Emphysema, unspecified (6) Chronic atrial fibrillation SNOMED Code(s): 267344948 ICD Code: I48.20 - CHRONIC ATRIAL FIBRILLATION, UNSPECIFIED Status: Chronic Current Visit: Yes Problem List Initiated/Reviewed/Updated: Yes Orders Last 24hrs: Active Orders 24 hr Category Date Time Status Patient Status Manage Transfer [TRANSFER] Routine ADT 07/22/19 12:49 Ordered CULTURE BLOOD [BC] Urgent Lab 07/22/19 10:30 Received CULTURE BLOOD [BC] Urgent Lab 07/22/19 10:40 Received Sodium Chloride 0.9% [Normal Saline] 1,000 ml Med 07/22/19 10:45 Active IV ASDIRECTED Blood Culture x2 Reflex Set [OM.PC] Urgent Oth 07/22/19 10:26 Ordered Resuscitation Status Routine Resus Stat 07/22/19 12:54 Ordered Medication Orders Sodium Chloride (Normal Saline) 1,000 mls @ 999 mls/hr IV ASDIRECTED ALON Last Admin: 07/22/19 10:40 Dose: 999 mls/hr Assessment/Plan Comment:: ASSESSMENT AND PLAN - Right lower lobe pneumonia-complicated by acute on chronic respiratory failure with hypoxia with baseline O2 requirement of 2 L/min. He is requiring a slight increase in his usual supplemental oxygen. He has leukocytosis and low-grade fever. He does have mild tachycardia but I am not sure if this is just from suboptimal atrial fibrillation control or the infection. He does not appear toxic or septic at this time. -Antibiotic coverage with levofloxacin -Sputum culture if able -Follow-up blood cultures -Supplement oxygen -Scheduled and as needed nebulizers Large right lower lung mass-noted on chest x-ray and confirmed with CT. Very suspicious for malignancy. I did talk to his and she does not feel that aggressive work-up or chemotherapy would be in line with the patient's previously expressed wishes. She would like to have some time to think about this and discuss the issue with the patient's brother and his daughter before making any definite decisions. The interventional radiology folks here believe that a biopsy could be obtained if the family wishes. -Further discussions will be held tomorrow -INR will be reversed in case intervention is planned Dementia with Lewy bodies-significant disability with dementia and very poor quality of life. He is having active hallucinations. No significant behavior issues at this time. -Continue home medications -Melatonin at bedtime Chronic atrial fibrillation-he is chronically anticoagulated. INR supratherapeutic and will be reversed as discussed above. Suboptimal rate control at this time. -Start metoprolol 25 mg twice daily -Reverse INR Maintenance issues - - DVT prophylaxis -mechanical - GI prophylaxis -H2 joe - Nutrition - regular - Carias catheter - not indicated CODE STATUS - DNR/DNI - discussed with his Leila Admission justification -this patient will be admitted for inpatient services and is medically appropriate meeting medical necessity for inpatient admission as outlined in my documentation. I reasonably expect the patient will require inpatient services that span a period time over 2 midnights. I reasonably expect this patient to be discharged or transferred within 96 hours after admission to the [facility]. Disposition - I would anticipate discharge back to his memory care unit after the hospital stay, possibly with hospice Primary care physician - Dr Ciarra Mcleod M.D. - Mortality Measure Prognosis:: Good
[2019-07-22] MEDS ORDERED: Ondansetron 4 MG/2 ML SDV IV PRN (14:09)
[2019-07-22] MEDS ORDERED: oxyCODONE 5 MG Tab PO PRN (14:09)
[2019-07-22] MEDS ORDERED: Magnesium Hydroxide 400 MG/5 ML Susp 30 ML Cup PO PRN (14:09)
[2019-07-22] MEDS ORDERED: Ondansetron 4 MG Tab.DIS PO PRN (14:09)
[2019-07-22] MEDS ORDERED: Metoprolol Tartrate 25 MG Tab PO ONE (15:00)
[2019-07-22] MEDS ORDERED: Phytonadione 10 MG in Sodium Chloride 0.9% 50 ML IV ONE (15:30)
[2019-07-22] MEDS: Sodium Chloride 0.9% 1,000 ML IV SCH (15:57)
[2019-07-22] MEDS: Albuterol/Ipratropium 3.0-0.5 MG/3 ML Neb Soln NEB SCH ×2 (16:03→20:25)
[2019-07-22] MEDS: Acetaminophen 500 MG Tab PO PRN ×2 (16:25→21:49)
[2019-07-22] MEDS: Levofloxacin/Dextrose 5%-Water 750 MG in Premix Bag 1 BAG IV SCH (16:29)
[2019-07-22] MEDS: Glycopyrrolate 15.6 MCG Cap.W.Dev Kit of 6 IH SCH (20:26)
[2019-07-22] MEDS: Fluticasone-Salmeterol 113-14 MCG Powder Inhalant INH SCH (20:26)
[2019-07-22] MEDS: Latanoprost 0.005% Ophth Soln 2.5 ML Bottle EYERT SCH (20:28)
[2019-07-22] MEDS: Ipratropium 0.03% Nasal Spray 30 ML Bot NASBOTH SCH (20:31)
[2019-07-22] MEDS: Lactobacillus Rhamnosus GG (Probiotic) Cap PO SCH (20:31)
[2019-07-22] MEDS: Venlafaxine 37.5 MG Cap.ER PO SCH (20:32)
[2019-07-22] MEDS: Metoprolol Tartrate 25 MG Tab PO SCH (20:32)
[2019-07-22] MEDS: guaiFENesin 600 MG Tab.ER PO SCH (20:33)
[2019-07-22] MEDS: QUEtiapine 25 MG Tab PO SCH (20:33)
[2019-07-22] MEDS: Famotidine 20 MG Tab PO SCH (20:34)
[2019-07-22] MEDS: Melatonin 3 MG Tab PO SCH (20:37)
[2019-07-22] MEDS: LORazepam 0.5 MG Tab PO SCH (20:37)
[2019-07-22] MEDS: Albuterol 0.083% 2.5 MG/3 ML Neb Soln NEB PRN (21:09)
[2019-07-22] MEDS: LORazepam 2 MG/ML SDV IVPUSH PRN (21:31)
[2019-07-23] MEDS: Morphine 2 MG/ML Syringe IVPUSH PRN (00:40)
[2019-07-23] MEDS ORDERED: Sodium Chloride 0.9% 250 ML IV ONE (02:39)
[2019-07-23] MEDS: Sodium Chloride 0.9% 1,000 ML IV SCH ×2 (03:43→10:33)
[2019-07-23] MEDS: Fluticasone-Salmeterol 113-14 MCG Powder Inhalant INH SCH ×2 (07:00→21:06)
[2019-07-23] MEDS: Albuterol/Ipratropium 3.0-0.5 MG/3 ML Neb Soln NEB SCH ×4 (07:00→21:05)
[2019-07-23] MEDS: Glycopyrrolate 15.6 MCG Cap.W.Dev Kit of 6 IH SCH ×2 (07:00→21:08)
[2019-07-23] MEDS: Metoprolol Tartrate 25 MG Tab PO SCH ×2 (08:39→21:18)
[2019-07-23] MEDS: Lactobacillus Rhamnosus GG (Probiotic) Cap PO SCH ×2 (08:39→21:05)
[2019-07-23] MEDS: Cyanocobalamin (Vitamin B12) 1,000 MCG Tab SL SCH (08:39)
[2019-07-23] MEDS: Aspirin 81 MG Tab.Chew PO SCH (08:39)
[2019-07-23] MEDS: atorvaSTATin 20 MG Tab PO SCH (08:39)
[2019-07-23] MEDS: Ipratropium 0.03% Nasal Spray 30 ML Bot NASBOTH SCH ×2 (08:40→21:05)
[2019-07-23] MEDS: Famotidine 20 MG Tab PO SCH ×2 (08:40→21:08)
[2019-07-23] MEDS: Clopidogrel 75 MG Tab PO SCH (08:40)
[2019-07-23] MEDS: guaiFENesin 600 MG Tab.ER PO SCH ×2 (08:40→21:08)
[2019-07-23] MEDS: Sennosides 8.6 MG Tab PO SCH (08:40)
[2019-07-23] MEDS: QUEtiapine 25 MG Tab PO SCH ×2 (08:41→21:08)
[2019-07-23] MEDS: predniSONE 5 MG Tab PO SCH (08:41)
[2019-07-23] MEDS: LORazepam 0.5 MG Tab PO SCH ×2 (08:46→21:05)
[2019-07-23] MEDS: Acetaminophen 500 MG Tab PO PRN ×2 (08:58→18:03)
[2019-07-23] MEDS ORDERED: Lisinopril 20 MG Tab PO SCH (09:00)
[2019-07-23] MEDS ORDERED: Sodium Chloride 0.9% 1,000 ML IV SCH (11:30)
[2019-07-23] MEDS ORDERED: Sodium Chloride 0.9% 500 ML IV SCH (14:15)
--- NOTE | 2019-07-23 15:03 | PCM.PN ---
- General Info Date of Service: 07/23/19 Subjective Update: There were no acute events overnight. Patient appears to be a little bit more interactive today and answers questions appropriately though he is not oriented to place at this time. He does endorse a mild cough but does not feel significantly short of breath. He did not have any fevers. He thinks the right side pain has improved. He did have some hypotension last night after a dose of morphine but blood pressures did improve this morning before falling again later in the morning. They are improving with IV fluids. Functional Status: Reports: Pain Controlled - Patient Data Vitals - Most Recent: Last Vital Signs Temp 36.7 C 07/23/19 13:33 Pulse 108 H 07/23/19 14:28 Resp 24 H 07/23/19 13:33 BP 82/51 L 07/23/19 13:33 Pulse Ox 95 07/23/19 13:33 Weight - Most Recent: 70.307 kg I&O - Last 24 Hours: Intake & Output 07/23/19 07/23/19 07/23/19 06:59 14:59 22:59 Intake Total 2200 Balance 2200 Lab Results Last 24 Hours: Laboratory Results - last 24 hr 07/23/19 07/23/19 07/23/19 Range/Units 04:19 04:19 04:19 WBC 15.8 H (4.5-11.0) K/uL RBC 4.02 L (4.30-5.90) M/uL Hgb 11.4 L D (12.0-15.0) g/dL Hct 37.2 L (40.0-54.0) % MCV 93 (80-98) fL MCH 28 (27-31) pg MCHC 31 L (32-36) % Plt Count 146 L (150-400) K/uL PT 16.6 H (9.5-12.0) sec INR 1.58 H D (0.80-1.20) Sodium 141 (140-148) mmol/L Potassium 4.2 (3.6-5.2) mmol/L Chloride 106 (100-108) mmol/L Carbon Dioxide 29 (21-32) mmol/L Anion Gap 6.1 (5.0-14.0) mmol/L BUN 32 H (7-18) mg/dL Creatinine 1.3 (0.8-1.3) mg/dL Est Cr Clr Drug Dosing 42.94 mL/min Estimated GFR (MDRD) 54 L (>60) Glucose 137 H (74-106) mg/dL Calcium 7.5 L (8.5-10.1) mg/dL Nico Results Last 24 Hours: Microbiology 07/22/19 10:30 Aerobic Blood Culture - Preliminary Blood - Arm, Right NO GROWTH AFTER 1 DAY Anaerobic Blood Culture - Preliminary NO GROWTH AFTER 1 DAY 07/22/19 10:40 Aerobic Blood Culture - Preliminary Blood - Arm, Right NO GROWTH AFTER 1 DAY Anaerobic Blood Culture - Preliminary NO GROWTH AFTER 1 DAY 07/22/19 22:28 Gram Stain - Final Sputum - Expectorated Med Orders - Current: Current Medications Acetaminophen (Tylenol Extra Strength) 500 mg PO Q6H PRN PRN Reason: Pain/Fever Last Admin: 07/23/19 08:58 Dose: 500 mg Albuterol (Proventil Neb Soln) 2.5 mg NEB Q4H PRN PRN Reason: Shortness Of Breath/wheezing Last Admin: 07/22/19 21:09 Dose: 2.5 mg Albuterol/Ipratropium (Duoneb 3.0-0.5 Mg/3 Ml) 3 ml NEB QIDRT [facility] Last Admin: 07/23/19 14:28 Dose: 3 ml Aspirin (Aspirin) 81 mg PO DAILY [facility] Last Admin: 07/23/19 08:39 Dose: 81 mg Atorvastatin Calcium (Lipitor) 80 mg PO DAILY [facility] Last Admin: 07/23/19 08:39 Dose: 80 mg Clopidogrel Bisulfate (Plavix) 75 mg PO DAILY [facility] Last Admin: 07/23/19 08:40 Dose: 75 mg Cyanocobalamin (Vitamin B12) 1,000 mcg SL DAILY [facility] Last Admin: 07/23/19 08:39 Dose: 1,000 mcg Famotidine (Pepcid) 20 mg PO BID [facility] Last Admin: 07/23/19 08:40 Dose: 20 mg Glycopyrrolate (Seebri Neohaler) 0 mcg IH BIDRT [facility] Last Admin: 07/23/19 07:00 Dose: 15.6 mcg Guaifenesin (Mucinex) 600 mg PO BID [facility] Last Admin: 07/23/19 08:40 Dose: 600 mg Levofloxacin/Dextrose 750 mg/ (Premix) 150 mls @ 100 mls/hr IV Q24H [facility] Last Admin: 07/22/19 16:29 Dose: 100 mls/hr Sodium Chloride (Normal Saline) 1,000 mls @ 100 mls/hr IV ASDIRECTED [facility] Last Admin: 07/23/19 10:33 Dose: 100 mls/hr Sodium Chloride (Normal Saline) 500 mls @ 500 mls/hr IV ASDIRECTED [facility] Stop: 07/23/19 15:16 Last Admin: 07/23/19 14:22 Dose: 500 mls/hr Ipratropium [place] (Atrovent 0.03% Nasal [place]) 0 ml NASBOTH BID [facility] Last Admin: 07/23/19 08:40 Dose: 1 spray Lactobacillus Rhamnosus (Culturelle) 1 cap PO BID [facility] Last Admin: 07/23/19 08:39 Dose: 1 cap Latanoprost (Xalatan 0.005% Ophth Soln) 0 ml EYERT BEDTIME [facility] Last Admin: 07/22/19 20:28 Dose: 1 drop Lorazepam (Ativan) 0.5 mg PO BID [facility] Last Admin: 07/23/19 08:46 Dose: 0.5 mg Lorazepam (Ativan) 0.5 mg IVPUSH Q4H PRN PRN Reason: Nausea/Vomiting Last Admin: 07/22/19 21:31 Dose: 0.5 mg Magnesium Hydroxide (Milk Of Magnesia) 30 ml PO Q12H PRN PRN Reason: Constipation Melatonin (Melatonin) 9 mg PO BEDTIME [facility] Last Admin: 07/22/19 20:37 Dose: 9 mg Metoprolol Tartrate (Lopressor) 25 mg PO Q12H [facility] Last Admin: 07/23/19 08:39 Dose: 25 mg Morphine Sulfate (Morphine) 2 mg IVPUSH Q2H PRN PRN Reason: Other Last Admin: 07/23/19 00:40 Dose: 2 mg Ondansetron HCl (Zofran Odt) 4 mg PO Q6H PRN PRN Reason: Nausea able to take PO Ondansetron HCl (Zofran) 4 mg IV Q6H PRN PRN Reason: Nausea/Vomiting Oxycodone HCl (Oxycodone) 5 mg PO Q4H PRN PRN Reason: Pain Prednisone (Prednisone) 5 mg PO DAILY [facility] Last Admin: 07/23/19 08:41 Dose: 5 mg Quetiapine Fumarate (Seroquel) 25 mg PO BID [facility] Last Admin: 07/23/19 08:41 Dose: 25 mg Fluticasone/Salmeterol (Fluticasone-Salmeterol 113-14 Mcg Powder Inh) 0 puff INH BIDRT [facility] Last Admin: 07/23/19 07:00 Dose: 1 puff Senna (Senna) 8.6 mg PO DAILY [facility] Last Admin: 07/23/19 08:40 Dose: 8.6 mg Senna/Docusate Sodium (Senna Plus) 1 tab PO BID PRN PRN Reason: Constipation Venlafaxine HCl (Effexor Xr) 37.5 mg PO BEDTIME [facility] Last Admin: 07/22/19 20:32 Dose: 37.5 mg Discontinued Medications Hydromorphone HCl (Dilaudid) 0.5 mg IVPUSH ONETIME ONE Stop: 07/22/19 11:59 Last Admin: 07/22/19 12:04 Dose: 0.5 mg Sodium Chloride (Normal Saline) 1,000 mls @ 999 mls/hr IV ASDIRECTED [facility] Last Admin: 07/22/19 10:40 Dose: 999 mls/hr Ceftriaxone Sodium 1 gm/ (Sodium Chloride) 50 mls @ 100 mls/hr IV ONETIME ONE Stop: 07/22/19 12:13 Last Admin: 07/22/19 12:12 Dose: 100 mls/hr Phytonadione 10 mg/ Sodium (Chloride) 51 mls @ 100 mls/hr IV ONETIME ONE Stop: 07/22/19 16:00 Last Admin: 07/22/19 15:42 Dose: 100 mls/hr Sodium Chloride (Normal Saline) 250 mls @ 250 mls/hr IV ONETIME ONE Stop: 07/23/19 03:38 Last Admin: 07/23/19 03:11 Dose: 250 mls/hr Sodium Chloride (Normal Saline) 1,000 mls @ 500 mls/hr IV ASDIRECTED [facility] Stop: 07/23/19 13:31 Last Admin: 07/23/19 11:29 Dose: 500 mls/hr Lisinopril (Prinivil) 20 mg PO DAILY [facility] Last Admin: 07/23/19 08:40 Dose: 20 mg Metoprolol Tartrate (Lopressor) 25 mg PO ONETIME ONE Stop: 07/22/19 15:01 Last Admin: 07/22/19 15:42 Dose: 25 mg - Exam Quality Assessment: Supplemental Oxygen General: Alert, Cooperative, No Acute Distress. No: Oriented Lungs: Normal Respiratory Effort, Crackles (Right lung base). No: Wheezing Cardiovascular: Regular Rhythm, Tachycardia GI/Abdominal Exam: Soft, No Distention Extremities: No Pedal Edema. No: Increased Warmth Skin: Warm, Dry Psy/Mental Status: Alert. No: Agitated Sepsis Event Note - Evaluation Sepsis Screening Result: Severe Sepsis Risk - Focused Exam Vital Signs: Vital Signs Temp Pulse Pulse Resp BP BP Pulse Ox 07/23/19 14:28 108 H 07/23/19 13:33 36.7 C 103 H 24 H 82/51 L 95 07/23/19 11:20 62/45 L 07/23/19 11:15 36.9 C 92 24 H 60/39 L 95 07/23/19 08:40 116/63 07/23/19 08:39 120 H 116/63 07/23/19 08:14 37.2 C 120 H 24 H 116/63 94 L 07/23/19 07:02 118 H Date Exam was Performed: 07/23/19 Time Exam was Performed: 15:00 - Problem List & Annotations (1) Right lower lobe pneumonia SNOMED Code(s): 890032968 Code(s): J18.9 - PNEUMONIA, UNSPECIFIED ORGANISM Status: Acute Current Visit: Yes Qualifiers: Pneumonia type: due to unspecified organism Qualified Code(s): J18.9 - Pneumonia, unspecified organism (2) Mass of right lung SNOMED Code(s): 427694217 Code(s): R91.8 - OTHER NONSPECIFIC ABNORMAL FINDING OF LUNG FIELD Status: Acute Current Visit: Yes (3) Acute and chronic respiratory failure with hypoxia SNOMED Code(s): 86763458, 121656024 Code(s): J96.21 - ACUTE AND CHRONIC RESPIRATORY FAILURE WITH HYPOXIA Status : Acute Current Visit: Yes (4) Lewy body dementia with behavioral disturbance SNOMED Code(s): 619729522022146 Code(s): G31.83 - DEMENTIA WITH LEWY BODIES; F02.81 - DEMENTIA IN OTH DISEASES CLASSD ELSWHR W BEHAVIORAL DISTURB Status: Chronic Current Visit: No (5) COPD (chronic obstructive pulmonary disease) SNOMED Code(s): 78903800 Code(s): J44.9 - CHRONIC OBSTRUCTIVE PULMONARY DISEASE, UNSPECIFIED Status : Chronic Current Visit: No Qualifiers: COPD type: emphysema Emphysema type: unspecified Qualified Code(s): J43.9 - Emphysema, unspecified (6) Chronic atrial fibrillation SNOMED Code(s): 733118938 Code(s): I48.20 - CHRONIC ATRIAL FIBRILLATION, UNSPECIFIED Status: Chronic Current Visit: Yes - Problem List Review Problem List Initiated/Reviewed/Updated: Yes - My Orders Last 24 Hours: My Active Orders 07/22/19 14:09 Patient Status [ADT] Routine Antiembolic Devices [RC] .Routine Intake and Output [RC] QSHIFT Notify Provider Vital Signs [RC] ASDIRECTED Oxygen Therapy [RC] PRN RT Aerosol Therapy [RC] ASDIRECTED Up With Assistance [RC] ASDIRECTED VTE/DVT Education [RC] Per Unit Routine Vital Signs [RC] Q4H Acetaminophen [Tylenol Extra Strength] 500 mg PO Q6H PRN Albuterol [Proventil Neb Soln] 2.5 mg NEB Q4H PRN Docusate Sodium/Sennosides [Senna Plus] 1 tab PO BID PRN LORazepam [Ativan] 0.5 mg IVPUSH Q4H PRN Magnesium Hydroxide [Milk of Magnesia] 30 ml PO Q12H PRN Ondansetron [Zofran ODT] 4 mg PO Q6H PRN Ondansetron [Zofran] 4 mg IV Q6H PRN Sodium Chloride 0.9% [Normal Saline] 1,000 ml IV ASDIRECTED oxyCODONE 5 mg PO Q4H PRN Sequential Compression Device [OM.PC] Routine 07/22/19 16:00 Albuterol/Ipratropium [DuoNeb 3.0-0.5 MG/3 ML] 3 ml NEB QIDRT Levofloxacin/Dextrose 5%-Water [Levaquin in D5W 750 MG/150 ML] 750 mg Premix Bag 1 bag IV Q24H 07/22/19 21:00 Famotidine [Pepcid] 20 mg PO BID Fluticasone/Salmeterol [Fluticasone-Salmeterol 113-14 MCG Powder Inh] 0 puff INH BIDRT Glycopyrrolate [Seebri Neohaler] 0 mcg IH BIDRT Ipratropium [Atrovent 0.03% Nasal [place]] 0 ml NASBOTH BID LORazepam [Ativan] 0.5 mg PO BID Lactobacillus Rhamnosus GG [Culturelle] 1 cap PO BID Latanoprost [Xalatan 0.005% Ophth Soln] 0 ml EYERT BEDTIME Melatonin 9 mg PO BEDTIME Metoprolol Tartrate [Lopressor] 25 mg PO Q12H QUEtiapine [SEROqueL] 25 mg PO BID Venlafaxine [Effexor XR] 37.5 mg PO BEDTIME guaiFENesin [Mucinex] 600 mg PO BID 07/22/19 22:28 CULTURE RESPIRATORY + SMEAR [RM] Routine 07/22/19 Dinner Regular Diet [DIET] 07/23/19 09:00 Aspirin 81 mg PO DAILY Clopidogrel [Plavix] 75 mg PO DAILY Cyanocobalamin (Vitamin B12) [Vitamin B12] 1,000 mcg SL DAILY Sennosides [Senna] 8.6 mg PO DAILY atorvaSTATin [Lipitor] 80 mg PO DAILY predniSONE 5 mg PO DAILY 07/23/19 14:15 Sodium Chloride 0.9% [Normal Saline] 500 ml IV ASDIRECTED - Plan Plan:: ASSESSMENT AND PLAN - Right lower lobe pneumonia-complicated by acute on chronic respiratory failure with hypoxia with baseline O2 requirement of 2 L/min. Stable since admission. White blood cell count is essentially stable. Oxygenation is stable. Sputum culture did show a few yeast as well as gram-positive rods and some gram- positive cocci but final results of culture are still pending. No fevers. -Antibiotic coverage with levofloxacin -Follow-up sputum culture -Follow-up blood cultures -Supplement oxygen -Scheduled and as needed nebulizers Large right lower lung mass-highly suspicious for lung cancer. Family does not wish to have aggressive work-up or intervention. Patient has previously expressed that he does not want chemotherapy. -Anticipate discharge home with hospice -No further work-up planned Dementia with Lewy bodies-significant disability with dementia and very poor quality of life. He is having active hallucinations. No significant behavior issues during the hospital stay. -Continue home medications -Melatonin at bedtime Chronic atrial fibrillation-he is chronically anticoagulated. INR now therapeutic. Heart rate improving with the addition of metoprolol. -Continue metoprolol 25 mg twice daily -Discontinue lisinopril with the hypotension Maintenance issues - - DVT prophylaxis -mechanical - GI prophylaxis -H2 joe - Nutrition - regular Disposition - I would anticipate discharge to home with his and additional assistance from hospice Primary care physician - Dr Ciarra Mcleod M.D.
[2019-07-23] MEDS: Levofloxacin/Dextrose 5%-Water 750 MG in Premix Bag 1 BAG IV SCH (16:05)
[2019-07-23] MEDS: Albuterol 0.083% 2.5 MG/3 ML Neb Soln NEB PRN (18:31)
[2019-07-23] MEDS: Venlafaxine 37.5 MG Cap.ER PO SCH (21:06)
[2019-07-23] MEDS: Melatonin 3 MG Tab PO SCH (21:07)
[2019-07-23] MEDS: Latanoprost 0.005% Ophth Soln 2.5 ML Bottle EYERT SCH (21:09)
[2019-07-23] MEDS: LORazepam 2 MG/ML SDV IVPUSH PRN (22:31)
[2019-07-24] MEDS: Sodium Chloride 0.9% 1,000 ML IV SCH (00:54)
[2019-07-24] MEDS: Morphine 2 MG/ML Syringe IVPUSH PRN ×2 (03:15→09:09)
[2019-07-24] MEDS: Glycopyrrolate 15.6 MCG Cap.W.Dev Kit of 6 IH SCH (06:59)
[2019-07-24] MEDS: Albuterol/Ipratropium 3.0-0.5 MG/3 ML Neb Soln NEB SCH (06:59)
[2019-07-24] MEDS: Fluticasone-Salmeterol 113-14 MCG Powder Inhalant INH SCH (06:59)
[2019-07-24 08:06] VITALS: BP 109/62; PULSE 127
[2019-07-24] MEDS: Cyanocobalamin (Vitamin B12) 1,000 MCG Tab SL SCH (08:10)
[2019-07-24] MEDS: atorvaSTATin 20 MG Tab PO SCH (08:10)
[2019-07-24] MEDS: Sennosides 8.6 MG Tab PO SCH (08:10)
[2019-07-24] MEDS: Clopidogrel 75 MG Tab PO SCH (08:10)
[2019-07-24] MEDS: Aspirin 81 MG Tab.Chew PO SCH (08:11)
[2019-07-24] MEDS: predniSONE 5 MG Tab PO SCH (08:11)
[2019-07-24] MEDS: guaiFENesin 600 MG Tab.ER PO SCH (08:11)
[2019-07-24] MEDS: Lactobacillus Rhamnosus GG (Probiotic) Cap PO SCH (08:11)
[2019-07-24] MEDS: Ipratropium 0.03% Nasal Spray 30 ML Bot NASBOTH SCH (08:11)
[2019-07-24] MEDS: Famotidine 20 MG Tab PO SCH (08:11)
[2019-07-24] MEDS: QUEtiapine 25 MG Tab PO SCH (08:11)
[2019-07-24] MEDS: LORazepam 0.5 MG Tab PO SCH (08:14)
--- NOTE | 2019-07-24 08:56 | PCM.DCSUM1 ---
Discharge Summary - Hospital Course Brief History: 79-year-old male with history of oxygen dependent COPD and recent diagnosis of dementia with Lewy bodies who presented with right sided chest pain and fever. He was admitted for management of a right lower lobe pneumonia and right lung cancer. Diagnosis: Stroke: No - Discharge Data Discharge Date: 07/24/19 Discharge Disposition: DC/Tfer to Hospice - Home 50 Condition: Stable - Referral to Home Health Primary Care Physician: Matty Lafleur MD - Discharge Diagnosis/Problem(s) (1) Right lower lobe pneumonia SNOMED Code(s): 919891109 ICD Code: J18.9 - PNEUMONIA, UNSPECIFIED ORGANISM Status: Acute Qualifiers: Pneumonia type: due to unspecified organism Qualified Code(s): J18.9 - Pneumonia, unspecified organism (2) Mass of right lung SNOMED Code(s): 234391821 ICD Code: R91.8 - OTHER NONSPECIFIC ABNORMAL FINDING OF LUNG FIELD Status: Acute (3) Acute and chronic respiratory failure with hypoxia SNOMED Code(s): 93329176, 969080244 ICD Code: J96.21 - ACUTE AND CHRONIC RESPIRATORY FAILURE WITH HYPOXIA Status: Acute (4) Lewy body dementia with behavioral disturbance SNOMED Code(s): 431946658920570 ICD Code: G31.83 - DEMENTIA WITH LEWY BODIES; F02.81 - DEMENTIA IN OTH DISEASES CLASSD ELSWHR W BEHAVIORAL DISTURB Status: Chronic (5) COPD (chronic obstructive pulmonary disease) SNOMED Code(s): 66989766 ICD Code: J44.9 - CHRONIC OBSTRUCTIVE PULMONARY DISEASE, UNSPECIFIED Status : Chronic Qualifiers: COPD type: emphysema Emphysema type: unspecified Qualified Code(s): J43.9 - Emphysema, unspecified (6) Chronic atrial fibrillation SNOMED Code(s): 682122565 ICD Code: I48.20 - CHRONIC ATRIAL FIBRILLATION, UNSPECIFIED Status: Chronic (7) Lung cancer SNOMED Code(s): 098054507 ICD Code: C34.90 - MALIGNANT NEOPLASM OF UNSP PART OF UNSP BRONCHUS OR LUNG Status: Acute Qualifiers: Laterality: right Lung location: lower lobe of lung Qualified Code(s): C34.31 - Malignant neoplasm of lower lobe, right bronchus or lung - Patient Summary/Data Labs Pending at D/C: Final results of sputum culture which are growing a gram-negative naeem at the time of discharge Hospital Course: Guy presented to the emergency room with right-sided chest pain and fever. Work-up in the emergency room revealed evidence for a right-sided pneumonia but also revealed a very large right lung mass which was very likely a primary lung cancer. The patient was started on antibiotics and admitted to the hospital for further work-up. After he was admitted I did talk to his as well as his daughter. We did discuss the potential for further work-up of this lung mass. They felt that given his fairly rapidly progressive dementia and his previously expressed wishes that he would not want to undergo invasive work-up especially because he has previously stated he did not want to have any chemotherapy. We did discuss hospice and they felt that this would be more in accordance with his wishes especially given his poor quality of life after his new diagnosis of dementia with Lewy bodies. We did continue the antibiotics during the hospital stay. Hospice was consulted and admission plans were made. Patient has remained stable during the hospital stay. He is on 2 to 2.5 L of supplemental oxygen but this is nearly his baseline. He has not had any fever since admission. He will be discharged home with his and additional assistance from the hospice team. He will be on antibiotics for 6 more days after hospital discharge. He has had some lower blood pressures during the hospital stay so we discontinued his amlodipine and lisinopril. I did start him on a low-dose metoprolol to help reduce his tachycardia. - Patient Instructions Diet: Regular Diet as Tolerated Activity: As Tolerated Showering/Bathing: May Shower Notify Provider of: Fever, Increased Pain, Nausea and/or Vomiting Other/Special Instructions: 1. You were in the hospital for management of a right lower lobe pneumonia as well as evaluation of a right lung mass that very likely represents a primary lung cancer. After several discussions the plan is to transition to hospice care. Hospice will help focus on comfort and having as many good days at home as possible. We should continue to treat the pneumonia and you will take levofloxacin 750 mg once daily at 4 PM for 6 more doses. You can utilize acetaminophen for mild pain and oxycodone for moderate pain. 2. We did make several medication changes during the hospital stay. You should stop taking both amlodipine and lisinopril because they lowered your blood pressure too far. Please start taking metoprolol 25 mg twice daily. This medication will help slow down your heart rate and should provide adequate blood pressure control. - Discharge Plan *PRESCRIPTION DRUG MONITORING PROGRAM REVIEWED*: Not Applicable *COPY OF PRESCRIPTION DRUG MONITORING REPORT IN PATIENT CHAITANYA: Not Applicable Prescriptions/Med Rec: Levofloxacin 750 mg PO Q24H #6 tablet Metoprolol Tartrate [Lopressor] 25 mg PO Q12H #60 tablet oxyCODONE 5 mg PO Q4H PRN #45 tablet PRN Reason: Pain Home Medications: Home Meds Aspirin 81 mg PO DAILY 09/19/15 [History] Cholecalciferol (Vitamin D3) [Vitamin D3] 2,000 unit PO DAILY 09/19/15 [History] Clopidogrel [Plavix] 75 mg PO DAILY 09/19/15 [History] atorvaSTATin [Lipitor] 80 mg PO DAILY 01/09/16 [History] Albuterol Sulfate [Proair Respiclick] 90 mcg IH Q4HR PRN 11/04/16 [History] Cyanocobalamin (Vitamin B-12) [Vitamin B-12] 1,000 mcg SL DAILY 11/04/16 [ History] Acetaminophen [Tylenol Extra Strength] 500 mg PO Q6H PRN 09/01/18 [History] Fluticasone/Umeclidin/Vilanter [Trelegy Ellipta 100-62.5-25] 1 puff IN DAILY [History] predniSONE [Deltasone] 5 mg PO DAILY 09/01/18 [History] Ipratropium [Atrovent 0.03% Nasal [place]] 2 spray IN BID 06/30/19 [History] LORazepam [Lorazepam] 1 tab PO BID 06/30/19 [History] Latanoprost 1 drop PO BEDTIME 06/30/19 [History] Sennosides [Laxative] 8.6 mg PO DAILY 06/30/19 [History] guaiFENesin [Mucinex] 600 mg PO BID 06/30/19 [History] Famotidine 20 mg PO BID 07/22/19 [History] QUEtiapine [SEROquel] 25 mg PO BID 07/22/19 [History] Venlafaxine [Effexor XR] 37.5 mg PO BEDTIME 07/22/19 [History] Levofloxacin 750 mg PO Q24H #6 tablet 07/24/19 [Rx] Metoprolol Tartrate [Lopressor] 25 mg PO Q12H #60 tablet 07/24/19 [Rx] oxyCODONE 5 mg PO Q4H PRN #45 tablet 07/24/19 [Rx] Oxygen Therapy Mode: Nasal Cannula Oxygen Flow Rate (L/min): 2 (2-4 L/min) Maintain SpO2% greater than: 88 Patient Handouts: Lung Cancer Referrals: Matty Lafleur MD [Primary Care Provider] - - Discharge Summary/Plan Comment DC Time >30 min.: Yes (35-coordinating hospice care) - Patient Data Vitals - Most Recent: Last Vital Signs Temp 37.7 C 07/24/19 08:04 Pulse 127 H 07/24/19 08:04 Resp 30 H 07/24/19 08:04 BP 109/62 07/24/19 08:04 Pulse Ox 93 L 07/24/19 08:04 Weight - Most Recent: 70.307 kg I&O - Last 24 hours: Intake & Output 07/23/19 07/24/19 07/24/19 22:59 06:59 14:59 Intake Total 2538 1428 Output Total 235 Balance 2303 1428 JAVIER Results - Last 24 hrs: Microbiology 07/22/19 10:30 Aerobic Blood Culture - Preliminary Blood - Arm, Right NO GROWTH AFTER 1 DAY Anaerobic Blood Culture - Preliminary NO GROWTH AFTER 1 DAY 07/22/19 10:40 Aerobic Blood Culture - Preliminary Blood - Arm, Right NO GROWTH AFTER 1 DAY Anaerobic Blood Culture - Preliminary NO GROWTH AFTER 1 DAY Med Orders - Current: Current Medications Acetaminophen (Tylenol Extra Strength) 500 mg PO Q6H PRN PRN Reason: Pain/Fever Last Admin: 07/23/19 18:03 Dose: 500 mg Albuterol (Proventil Neb Soln) 2.5 mg NEB Q4H PRN PRN Reason: Shortness Of Breath/wheezing Last Admin: 07/23/19 18:31 Dose: 2.5 mg Albuterol/Ipratropium (Duoneb 3.0-0.5 Mg/3 Ml) 3 ml NEB QIDRT [facility] Last Admin: 07/24/19 06:59 Dose: 3 ml Aspirin (Aspirin) 81 mg PO DAILY [facility] Last Admin: 07/24/19 08:11 Dose: 81 mg Atorvastatin Calcium (Lipitor) 80 mg PO DAILY [facility] Last Admin: 07/24/19 08:10 Dose: 80 mg Clopidogrel Bisulfate (Plavix) 75 mg PO DAILY [facility] Last Admin: 07/24/19 08:10 Dose: 75 mg Cyanocobalamin (Vitamin B12) 1,000 mcg SL DAILY [facility] Last Admin: 07/24/19 08:10 Dose: 1,000 mcg Famotidine (Pepcid) 20 mg PO BID [facility] Last Admin: 07/24/19 08:11 Dose: 20 mg Glycopyrrolate (Seebri Neohaler) 0 mcg IH BIDRT [facility] Last Admin: 07/24/19 06:59 Dose: 15.6 mcg Guaifenesin (Mucinex) 600 mg PO BID [facility] Last Admin: 07/24/19 08:11 Dose: 600 mg Levofloxacin/Dextrose 750 mg/ (Premix) 150 mls @ 100 mls/hr IV Q24H [facility] Last Admin: 07/23/19 16:05 Dose: 100 mls/hr Sodium Chloride (Normal Saline) 1,000 mls @ 100 mls/hr IV ASDIRECTED [facility] Last Admin: 07/24/19 00:54 Dose: 100 mls/hr Ipratropium [place] (Atrovent 0.03% Nasal Wellman) 0 ml NASBOTH BID [facility] Last Admin: 07/24/19 08:11 Dose: 1 spray Lactobacillus Rhamnosus (Culturelle) 1 cap PO BID [facility] Last Admin: 07/24/19 08:11 Dose: 1 cap Latanoprost (Xalatan 0.005% Ophth Soln) 0 ml EYERT BEDTIME [facility] Last Admin: 07/23/19 21:09 Dose: 1 drop Lorazepam (Ativan) 0.5 mg PO BID [facility] Last Admin: 07/24/19 08:14 Dose: 0.5 mg Lorazepam (Ativan) 0.5 mg IVPUSH Q4H PRN PRN Reason: Nausea/Vomiting Last Admin: 07/23/19 22:31 Dose: 0.5 mg Magnesium Hydroxide (Milk Of Magnesia) 30 ml PO Q12H PRN PRN Reason: Constipation Melatonin (Melatonin) 9 mg PO BEDTIME [facility] Last Admin: 07/23/19 21:07 Dose: 9 mg Metoprolol Tartrate (Lopressor) 25 mg PO Q12H [facility] Last Admin: 07/23/19 21:18 Dose: Not Given Morphine Sulfate (Morphine) 2 mg IVPUSH Q2H PRN PRN Reason: Other Last Admin: 07/24/19 03:15 Dose: 2 mg Ondansetron HCl (Zofran Odt) 4 mg PO Q6H PRN PRN Reason: Nausea able to take PO Ondansetron HCl (Zofran) 4 mg IV Q6H PRN PRN Reason: Nausea/Vomiting Oxycodone HCl (Oxycodone) 5 mg PO Q4H PRN PRN Reason: Pain Prednisone (Prednisone) 5 mg PO DAILY [facility] Last Admin: 07/24/19 08:11 Dose: 5 mg Quetiapine Fumarate (Seroquel) 25 mg PO BID [facility] Last Admin: 07/24/19 08:11 Dose: 25 mg Fluticasone/Salmeterol (Fluticasone-Salmeterol 113-14 Mcg Powder Inh) 0 puff INH BIDRT [facility] Last Admin: 07/24/19 06:59 Dose: 1 puff Senna (Senna) 8.6 mg PO DAILY [facility] Last Admin: 07/24/19 08:10 Dose: 8.6 mg Senna/Docusate Sodium (Senna Plus) 1 tab PO BID PRN PRN Reason: Constipation Venlafaxine HCl (Effexor Xr) 37.5 mg PO BEDTIME [facility] Last Admin: 07/23/19 21:06 Dose: 37.5 mg Discontinued Medications Hydromorphone HCl (Dilaudid) 0.5 mg IVPUSH ONETIME ONE Stop: 07/22/19 11:59 Last Admin: 07/22/19 12:04 Dose: 0.5 mg Sodium Chloride (Normal Saline) 1,000 mls @ 999 mls/hr IV ASDIRECTED [facility] Last Admin: 07/22/19 10:40 Dose: 999 mls/hr Ceftriaxone Sodium 1 gm/ (Sodium Chloride) 50 mls @ 100 mls/hr IV ONETIME ONE Stop: 07/22/19 12:13 Last Admin: 07/22/19 12:12 Dose: 100 mls/hr Phytonadione 10 mg/ Sodium (Chloride) 51 mls @ 100 mls/hr IV ONETIME ONE Stop: 07/22/19 16:00 Last Admin: 07/22/19 15:42 Dose: 100 mls/hr Sodium Chloride (Normal Saline) 250 mls @ 250 mls/hr IV ONETIME ONE Stop: 07/23/19 03:38 Last Admin: 07/23/19 03:11 Dose: 250 mls/hr Sodium Chloride (Normal Saline) 1,000 mls @ 500 mls/hr IV ASDIRECTED [facility] Stop: 07/23/19 13:31 Last Admin: 07/23/19 11:29 Dose: 500 mls/hr Sodium Chloride (Normal Saline) 500 mls @ 500 mls/hr IV ASDIRECTED [facility] Stop: 07/23/19 15:16 Last Admin: 07/23/19 14:22 Dose: 500 mls/hr Lisinopril (Prinivil) 20 mg PO DAILY [facility] Last Admin: 07/23/19 08:40 Dose: 20 mg Metoprolol Tartrate (Lopressor) 25 mg PO ONETIME ONE Stop: 07/22/19 15:01 Last Admin: 07/22/19 15:42 Dose: 25 mg *Q Meaningful Use (DIS) - VTE *Q VTE Pharmacological Contraindications *Q: High INR Value
== END 2019-07-24 10:19 | disposition hospice, home (50) | DRG 193 ==
LOC: JP.ED 09:07 → JP.MS 12:49
PROVIDERS: ADMIT Internal Medicine; ATTEND Internal Medicine
DX: J18.9 Pneumonia, unspecified organism (principal); R91.8 Other nonspecific abnormal finding of lung field; E86.0 Dehydration; R79.1 Abnormal coagulation profile; J96.21 Acute and chronic respiratory failure with hypoxia; F02.81 Dementia in other diseases classified elsewhere, unspecified severity, with behavioral disturbance; Z66 Do not resuscitate; I48.20 Chronic atrial fibrillation, unspecified; C34.31 Malignant neoplasm of lower lobe, right bronchus or lung; G31.83 Neurocognitive disorder with Lewy bodies; H44.9 Unspecified disorder of globe; J43.9 Emphysema, unspecified; H91.90 Unspecified hearing loss, unspecified ear; H54.7 Unspecified visual loss; I48.91 Unspecified atrial fibrillation; F03.90 Unspecified dementia, unspecified severity, without behavioral disturbance, psychotic disturbance, mood disturbance, and anxiety; Z85.828 Personal history of other malignant neoplasm of skin; I25.10 Atherosclerotic heart disease of native coronary artery without angina pectoris; E78.00 Pure hypercholesterolemia, unspecified; I10 Essential (primary) hypertension; H35.30 Unspecified macular degeneration; K59.00 Constipation, unspecified; N40.0 Benign prostatic hyperplasia without lower urinary tract symptoms; Z79.02 Long term (current) use of antithrombotics/antiplatelets; F41.9 Anxiety disorder, unspecified; Z99.81 Dependence on supplemental oxygen; Z95.5 Presence of coronary angioplasty implant and graft; Z87.891 Personal history of nicotine dependence; Z98.890 Other specified postprocedural states; Z87.01 Personal history of pneumonia (recurrent); Z86.010 Personal history of colon polyps; Z79.82 Long term (current) use of aspirin; Z79.899 Other long term (current) drug therapy; Z79.52 Long term (current) use of systemic steroids; Z88.8 Allergy status to other drugs, medicaments and biological substances; Z88.0 Allergy status to penicillin; Z88.5 Allergy status to narcotic agent; Z79.01 Long term (current) use of anticoagulants
CPT/HCPCS: 36415; 70450 ×2; 71045 ×2; 71250 ×2; 80053; 81001; 83605; 83690; 85025; 85610; 87040 ×2; 96361; 96365; 96375; 99285; J0696; J1170; J7030; J7050; 51798; 80048; 85027; 87070; 87077; 87186; 87205; 94640; A9270-GY; J1956; J2060; J2270; J3430; J7512; J7620-GY